=== PATIENT | female | born 1995 | race Asian ===

== ENCOUNTER 2021-09-01 19:37 | Emergency (ER) | payer BC ==
[~2021-09-01] VITALS: Ht 165.1 cm; Wt 52.2 kg
[2021-09-01] MEDS ORDERED: diphenhydrAMINE HCL 50 MG/ML VIAL ONE ×2 (20:27→21:51)
[2021-09-01] MEDS ORDERED: HALOPERIDOL LACTATE INJ 5 MG/ML VIAL ONE ×2 (20:27→21:51)
--- NOTE | 2021-09-01 20:27 | NUR ---
METAL RIVETING MACHINE OPERATOR AT PT'S BEDSIDE
[2021-09-01] MEDS ORDERED: MORPHINE SULFATE INJ 2 MG/ML DISP.SYRIN ONE ×2 (20:28→22:17)
[2021-09-01] MEDS ORDERED: MORPHINE SULFATE INJ 2 MG/ML DISP.SYRIN IV ONE ×2 (20:30→22:30)
[2021-09-01] MEDS ORDERED: IV NS 0.9% 1,000 ML BAG IV ONE (20:30)
[2021-09-01] MEDS: HALOPERIDOL LACTATE INJ 5 MG/ML VIAL IM ONE ×3 (20:36→21:55)
[2021-09-01 20:37] LABS: BASOPHILS # (AUTO) 0.1 K/uL (0.0-0.2); BASOPHILS % (AUTO) 0.5 % (0.0-2.0); EOSINOPHILS % (AUTO) 0.2 % (0.0-6.0); HEMATOCRIT 37 % (33-45); HEMOGLOBIN 11.3 g/dL (11.5-14.8); LYMPHOCYTES # (AUTO) 1.4 K/uL (0.8-4.8); LYMPHOCYTES % (AUTO) 9.7 % (20.0-44.0); MEAN CORPUSCULAR HGB CONC 31 g/dl (31.0-36.0); MEAN CORPUSCULAR VOLUME 80 fL (82-100); MONOCYTES # (AUTO) 0.6 K/uL (0.1-1.30); MONOCYTES % (AUTO) 3.9 % (2.0-12.0); NEUTROPHILS # (AUTO) 12.5 K/uL (1.8-8.9); NEUTROPHILS % (AUTO) 85.7 % (43.0-81.0); PLATELET COUNT (AUTO) 195 K/uL (150-450); RED BLOOD CELL COUNT(AUTO) 4.61 MIL/uL (4.0-5.2); WHITE BLOOD COUNT (AUTO) 14.6 K/uL (4.3-11.0)
[2021-09-01 20:49] LABS: CALCIUM, SERUM 8.9 mg/dL (8.5-10.1); CREATININE 0.7 mg/dL (0.6-1.3); POTASSIUM 3.8 mmol/L (3.5-5.1)
[2021-09-01] MEDS: diphenhydrAMINE HCL 50 MG/ML VIAL IV ONE ×2 (20:50→21:55)
--- NOTE | 2021-09-01 20:51 | NUR ---
haldol not given hr in 40S md made aware, held per md order.
[2021-09-01 20:55] LABS: ALBUMIN 3.8 g/dL (3.4-5.0); BILIRUBIN,DIRECT 0.2 mg/dL (0.0-0.2); BILIRUBIN,TOTAL 0.3 mg/dL (0.2-1.0); TOTAL PROTEIN, SERUM 6.9 g/dL (6.4-8.2)
--- NOTE | 2021-09-01 21:55 | NUR ---
per ok to give haldol.
[2021-09-01] MEDS ORDERED: LORAZEPAM INJ 2 MG/ML VIAL ONE (22:18)
[2021-09-01] MEDS ORDERED: LORAZEPAM INJ 2 MG/ML VIAL IV ONE (22:30)
[2021-09-02] MEDS ORDERED: IV NS 0.9% 1,000 ML IV ONE (01:00)
[2021-09-02] MEDS ORDERED: ONDA4TAB11 PO (01:59)
--- NOTE | 2021-09-02 02:06 | NUR ---
MOTHER WILL CAR UNLOADER PATIENT ETA 30 MINS
[2021-09-02 02:45] VITALS: BP 110/62
--- NOTE | 2021-09-02 02:46 | NUR ---
Patient discharged to home in stable condition. RX AND Written and verbal after care instructions given. Patient verbalizes understanding of instruction.IV removed. Catheter intact and site benign. Pressure and 4x4 applied to site. No bleeding noted.
== END 2021-09-02 02:50 | disposition home or self-care (01) ==
LOC: ER 19:41
DX: R10.84 Generalized abdominal pain (principal); R11.2 Nausea with vomiting, unspecified; R11.15 Cyclical vomiting syndrome unrelated to migraine; Z88.0 Allergy status to penicillin; Z60.2 Problems related to living alone
CPT/HCPCS: 36415; 74176; 80048; 80076; 83690; 84702; 85025; 93005; 96361 ×2; 96372; 96374; 96375; 96376; 99285; J1200; J1630; J2060; J2270 ×2

== ENCOUNTER 2021-10-08 16:12 | Inpatient (IN) | payer BC ==
[~2021-10-08] VITALS: Ht 170.2 cm; Wt 46.7 kg
[~2021-10-08 16:12] MED LIST: ONDA4TAB11 PO
--- NOTE | 2021-10-08 16:30 | NUR ---
AT [facility] FOR EVAL. Addendum: 10/08/21 at 1807 by TAMMYZARENO PT REFUSED ALBA CATH INSERTION.
--- NOTE | 2021-10-08 16:30 | NUR ---
BIBS FOR C/O LOWER ABDOMINAL PAIN, NAUSEA AND VOMITING SINCE AM S/P START OF HER PERIOD. RATES ABDOMINAL PAIN 08/05. WILL CONTINUE TO MONITOR THE PATIENT.
[2021-10-08] MEDS ORDERED: ONDANSETRON HCL/PF 4 MG/2 ML VIAL ONE ×2 (16:43→19:42)
[2021-10-08] MEDS ORDERED: LORAZEPAM INJ 2 MG/ML VIAL IV ONE (17:00)
[2021-10-08] MEDS ORDERED: ONDANSETRON HCL/PF - ER 4 MG/2 ML VIAL IV ONE ×2 (17:00→19:30)
[2021-10-08] MEDS ORDERED: IV NS 0.9% 1,000 ML IV ONE (17:00)
[2021-10-08] MEDS ORDERED: LORAZEPAM INJ 2 MG/ML VIAL ONE (17:13)
--- NOTE | 2021-10-08 17:16 | NUR ---
URINE SPECIMEN CUP GIVEN BUT UNABLE TO PROVIDE SPECIMEN THIS TIME.
[2021-10-08 17:36] LABS: BASOPHILS % (AUTO) 0.4 % (0.0-2.0); EOSINOPHILS % (AUTO) 0.3 % (0.0-6.0); HEMATOCRIT 36 % (33-45); HEMOGLOBIN 11.1 g/dL (11.5-14.8); LYMPHOCYTES # (AUTO) 1.4 K/uL (0.8-4.8); MEAN CORPUSCULAR HGB CONC 31 g/dl (31.0-36.0); MEAN CORPUSCULAR VOLUME 79 fL (82-100); MONOCYTES # (AUTO) 0.4 K/uL (0.1-1.30); MONOCYTES % (AUTO) 3.8 % (2.0-12.0); NEUTROPHILS # (AUTO) 9.7 K/uL (1.8-8.9); NEUTROPHILS % (AUTO) 83.5 % (43.0-81.0); PLATELET COUNT (AUTO) 171 K/uL (150-450); RED BLOOD CELL COUNT(AUTO) 4.53 MIL/uL (4.0-5.2); WHITE BLOOD COUNT (AUTO) 11.6 K/uL (4.3-11.0)
[2021-10-08 18:04] LABS: ALCOHOL, BLOOD < 3 mg/dL (0-0)
--- NOTE | 2021-10-08 18:07 | NUR ---
PT REFUSED ALBA CATH INSERTION.
[2021-10-08 18:13] LABS: CALCIUM, SERUM 8.7 mg/dL (8.5-10.1); CREATININE 0.9 mg/dL (0.6-1.3); POTASSIUM 4.1 mmol/L (3.5-5.1)
--- NOTE | 2021-10-08 18:17 | NUR ---
URINE SPECIMEN COLLECTED AND SENT TO LAB.
[2021-10-08 18:18] LABS: ALBUMIN 3.9 g/dL (3.4-5.0); BILIRUBIN,DIRECT 0.2 mg/dL (0.0-0.2); BILIRUBIN,TOTAL 0.7 mg/dL (0.2-1.0); TOTAL PROTEIN, SERUM 7.2 g/dL (6.4-8.2)
[2021-10-08] MEDS ORDERED: KETOROLAC TROMETHAMINE INJ 30 MG/ML VIAL IV ONE (18:30)
[2021-10-08] MEDS ORDERED: KETOROLAC TROMETHAMINE 15 MG/ML VIAL ONE (18:41)
[2021-10-08 18:51] LABS: BILIRUBIN,URINE NEGATIVE (NEGATIVE); COLOR,URINE YELLOW (YELLOW); LEUKOCYTE ESTERASE ,URINE NEGATIVE (NEGATIVE); NITRITE, URINE NEGATIVE (NEGATIVE); PH,URINE 6.5 (5.0-8.0); PROTEIN,URINE NEGATIVE (NEGATIVE); UGLUCOSE NEGATIVE (NEGATIVE); UROBILINOGEN,URINE 0.2 EU/dL (0.2)
[2021-10-08 18:54] LABS: BACTERIA,URINE RARE /HPF (None Seen); RBC,URINE 21-50 /HPF (0-2); WBC,URINE 0-2 /HPF (0-3)
[2021-10-08 18:55] LABS: SQUAMOUS EPITHELIAL CELL,UR 0-2 /HPF (None Seen)
[2021-10-08] MEDS ORDERED: ONDA4TAB5 PO (18:57)
[2021-10-08] MEDS ORDERED: diphenhydrAMINE HCL 50 MG/ML VIAL IV ONE (19:30)
[2021-10-08] MEDS ORDERED: IV NS 0.9% 1,000 ML BAG IV ONE (19:30)
--- NOTE | 2021-10-08 19:38 | NUR ---
COVID SWAB SENT TO LAB
[2021-10-08] MEDS ORDERED: diphenhydrAMINE HCL 50 MG/ML VIAL ONE (19:42)
[2021-10-08] MEDS ORDERED: ACETAMINOPHEN 325 MG TABLET PO PRN (20:00)
[2021-10-08] MEDS ORDERED: MAGNESIUM HYDROXIDE 30 ML UDC PO PRN (20:00)
[2021-10-08] MEDS ORDERED: Z GUARD REMEDY 2 OZ OINT TP PRN (20:00)
[2021-10-08] MEDS ORDERED: IV NS 0.9% 1,000 ML IV PRN (20:00)
[2021-10-08] MEDS ORDERED: MAG HYDROX/AL HYDROX/SIMETH 30 ML UDC PO PRN (20:00)
[2021-10-08] MEDS ORDERED: ONDANSETRON HCL/PF 4 MG/2 ML VIAL IVP PRN (20:00)
--- NOTE | 2021-10-08 20:34 | NUR ---
REPORT GIVEN TO HANNAH CERDA FOR OTILIA
--- NOTE | 2021-10-08 20:35 | NUR ---
RN notes Received report from HANNAH Moore ER nurse.
[2021-10-08 20:40] VITALS: BP 125/75
--- NOTE | 2021-10-08 20:40 | NUR ---
RN ms admission notes Received Pt from ER nurse. Pt is alert and orientedX4. Respiration is normal in 2 L NC. VS is stable. Afebrile. No SOB. No S/S of distress noted. IV site at L forearm # 22 is clean, intact and flushes well. Skin assessment is done and performed. Pt's skin is intact. Pt's belonging is checked By MIREILLE Wall. Safety precautions is maintained. Reoriented Pt to the room and call light. Bed at low position, brakes locked, side rails upX2, bed alarm is on and call light is within reach. Will continue to monitor.
[2021-10-08 21:00] VITALS: BP 125/75
--- NOTE | 2021-10-08 21:49 | NUR ---
RN notes Pt is feeling anxious and requesting ativan. Informed and notified LIQUID SUGAR FORTIFIER. LIQUID SUGAR FORTIFIER ordered ativan 1 mg/Q 6hr/ prn. Order carried out.
[2021-10-08] MEDS: METOCLOPRAMIDE HCL 10 MG/2 ML VIAL IV SCH (22:40)
[2021-10-08] MEDS: LORAZEPAM 1 MG TABLET PO PRN (22:40)
--- NOTE | 2021-10-09 01:47 | NUR ---
RN notes Pt is feeling anxious and nausea at the same time. Pt stated "only ativan help me with nausea not other meds!" Informed and notified PRIMARY SUBSTANCE ABUSE COUNSELOR. PRIMARY SUBSTANCE ABUSE COUNSELOR order ativan 1 mg/po/0ne time. Order carried out.
--- NOTE | 2021-10-09 01:50 | NUR ---
RN notes Called and spoke with [facility] to verify ativan 1mg/po/one time.
--- NOTE | 2021-10-09 01:54 | NUR ---
RN notes Pt is feeling nausea and anxious and requesting ativan. Administered ativan 1 mg/po/one time as ordered. safety precautions is maintained. Will continue to monitor.
[2021-10-09] MEDS ORDERED: LORAZEPAM 1 MG TABLET PO ONE (02:00)
[2021-10-09] MEDS: IV NS 0.9% 1,000 ML IV PRN ×2 (02:06→13:24)
[2021-10-09] MEDS: METOCLOPRAMIDE HCL 10 MG/2 ML VIAL IV SCH ×3 (05:00→21:49)
--- NOTE | 2021-10-09 05:00 | NUR ---
RN notes Pt refused reglan. Explained risks and benefits. pt keep refusing. Pt stated "only ativan works". Will continue to monitor.
[2021-10-09 06:49] LABS: BASOPHILS % (AUTO) 0.1 % (0.0-2.0); HEMATOCRIT 32 % (33-45); HEMOGLOBIN 10.3 g/dL (11.5-14.8); LYMPHOCYTES # (AUTO) 0.7 K/uL (0.8-4.8); LYMPHOCYTES % (AUTO) 10.1 % (20.0-44.0); MEAN CORPUSCULAR HGB CONC 33 g/dl (31.0-36.0); MEAN CORPUSCULAR VOLUME 77 fL (82-100); MONOCYTES # (AUTO) 0.3 K/uL (0.1-1.30); MONOCYTES % (AUTO) 3.6 % (2.0-12.0); NEUTROPHILS # (AUTO) 6.3 K/uL (1.8-8.9); NEUTROPHILS % (AUTO) 86.2 % (43.0-81.0); PLATELET COUNT (AUTO) 143 K/uL (150-450); RED BLOOD CELL COUNT(AUTO) 4.12 MIL/uL (4.0-5.2); WHITE BLOOD COUNT (AUTO) 7.3 K/uL (4.3-11.0)
--- NOTE | 2021-10-09 06:50 | NUR ---
RN ms closing notes Pt is resting in bed comfortably. Pt is alert and orienetdX4. Respiration is normal in 2 L NC. No SOB. No S/S of distress noted. Vs is stable. Afebrile. IV site at L forearm# 22 is clean, intact and infusing well NS@ 100ml/hr. Routine meds were given as ordered. Safety precautions is maintained. Bed at low position, brakes locked, side railsupX2 and call light is within reach. Will endorse to am nurse for OTILIA.
[2021-10-09 07:01] LABS: CALCIUM, SERUM 7.8 mg/dL (8.5-10.1); CREATININE 0.7 mg/dL (0.6-1.3); MAGNESIUM 1.9 mg/dL (1.8-2.4); PHOSPHORUS 4.1 mg/dL (2.5-4.9); POTASSIUM 4.5 mmol/L (3.5-5.1)
--- NOTE | 2021-10-09 07:55 | NUR ---
MS RN OPENING NOTES PATIENT IN BED, ASLEEP, AWAKEN EASILY. PATIENT ON OXYGEN THERAPY AT 2 LPM VIA NASAL CANNULA; BREATHING EVEN AND UNLABORED, NO SOB NOTED. NO S/S OF PAIN AT THIS TIME SUCH FACIAL GRIMACING, MOANING OR GUARDING NOTED. IV ACCESS AT LFA G #22 PRESENT AND INTACT RUNNING NS @ 100 ML/HR. SAFETY PRECAUTIONS IN PLACE; BED IN LOW POSITION AND LOCKED, RAILS UP X2, CALL LIGHT WITHIN REACH. WILL CONTINUE TO MONITOR PATIENT.
[2021-10-09 08:00] VITALS: BP 95/44
[2021-10-09] MEDS: ENSURE CLEAR 237 ML LIQUID (MIX BERRY) PO SCH ×2 (15:44→17:26)
[2021-10-09 16:00] VITALS: BP 92/44
--- NOTE | 2021-10-09 18:44 | NUR ---
MS RN CLOSING NOTES PATIENT REMAINS IN BED, ASLEEP, AWAKEN EASILY. PATIENT ON OXYGEN THERAPY AT 2 LPM VIA NASAL CANNULA; BREATHING EVEN AND UNLABORED, NO SOB NOTED. NO COMPLAINS OF PAIN JUST DIZZINESS AND NAUSEA. IV ACCESS AT LFA G #22 PRESENT AND INTACT; STOPPED DUE TO PATIENT BEING COLD, SHIVERING (NO FEVER) AND WANTING TO REST; WILL ENDORSE TO CMM PROGRAMMER NURSE TO RESTART SOON PATIENT IS COMFORTABLE. SAFETY PRECAUTIONS IN PLACE; BED IN LOW POSITION AND LOCKED, RAILS UP X2, CALL LIGHT WITHIN REACH. WILL ENDORSE TO CMM PROGRAMMER NURSE FOR OTILIA.
--- NOTE | 2021-10-09 19:00 | NUR ---
MS RN OPENING NOTE RECEIVED PT AWAKE IN BED. A/OX 4. PT IS STABLE ON 2L OXYGEN VIA NASAL CANNULA. NO SOB NOTED. NO S/S RESPIRATORY DISTRESS. PT IS AMBULATORY WITH ASSIST. PT HAS NO C/O PAIN AT THIS TIME. IV ACCESS IN LEFT FOREARM G #22. IV IS INTACT, PATENT, AND FLUSHING WELL. SAFETY MEASURES MAINTAINED . BED IN LOWEST LOCKED POSITION, HOB ELEVATED, SIDE RAILS UP X2. CALL LIGHT AND TABLE WITHIN REACH. WILL CONTINUE WITH PLAN OF CARE.
[2021-10-09 20:45] VITALS: BP 80/43
[2021-10-09] MEDS ORDERED: ZOLPIDEM TARTRATE 5 MG TABLET PO PRN (22:00)
--- NOTE | 2021-10-09 22:15 | NUR ---
PT C/O INABILITY TO SLEEP, PER PT REQUEST AMBIEN 5MG PO HS PRN FOR SLEEP ADMINISTERED AT THIS TIME PER ORDER. WILL CONTINUE TO MONITOR.
[2021-10-09] MEDS: LORAZEPAM 1 MG TABLET PO PRN (23:57)
--- NOTE | 2021-10-09 23:57 | NUR ---
PT C/O ANXIETY, PER PT REQUEST ATIVAN 1MG PO Q 6HR PRN ADMINISTERED AT THIS TIME PER ORDER. WILL CONTINUE TO MONITOR.
[2021-10-10] MEDS: METOCLOPRAMIDE HCL 10 MG/2 ML VIAL IV SCH ×2 (05:25→12:26)
--- NOTE | 2021-10-10 06:29 | NUR ---
MS RN CLOSING NOTE PT RESTING COMFORTABLY IN BED AT THIS TIME, AWAKE, A/O X4, STABLE ON 2L OXYGEN VIA NC. PT REMAINED STABLE THROUGHOUT SHIFT. ALL NEEDS, MEDICATIONS, AND CARE ADMINISTERED ANTICIPATED PER ORDER; SAFETY PRECAUTIONS IN PLACE AND MAINTAINED AT ALL TIMES. BED IN LOWEST LOCKED POSITION, HOB ELEVATED, SIDE RAILS UP X2. CALL LIGHT AND TABLE WITHIN REACH. WILL ENDORSE TO MORNING SHIFT NURSE FOR OTILIA.
[2021-10-10 06:56] LABS: BASOPHILS % (AUTO) 0.5 % (0.0-2.0); EOSINOPHILS % (AUTO) 1.3 % (0.0-6.0); HEMATOCRIT 32 % (33-45); HEMOGLOBIN 10.5 g/dL (11.5-14.8); LYMPHOCYTES # (AUTO) 2.5 K/uL (0.8-4.8); LYMPHOCYTES % (AUTO) 40.3 % (20.0-44.0); MEAN CORPUSCULAR HGB CONC 33 g/dl (31.0-36.0); MEAN CORPUSCULAR VOLUME 77 fL (82-100); MONOCYTES # (AUTO) 0.5 K/uL (0.1-1.30); MONOCYTES % (AUTO) 7.5 % (2.0-12.0); NEUTROPHILS # (AUTO) 3.1 K/uL (1.8-8.9); NEUTROPHILS % (AUTO) 50.4 % (43.0-81.0); PLATELET COUNT (AUTO) 126 K/uL (150-450); RED BLOOD CELL COUNT(AUTO) 4.18 MIL/uL (4.0-5.2); WHITE BLOOD COUNT (AUTO) 6.2 K/uL (4.3-11.0)
[2021-10-10 07:28] LABS: CALCIUM, SERUM 8.3 mg/dL (8.5-10.1); CREATININE 0.7 mg/dL (0.6-1.3)
--- NOTE | 2021-10-10 07:30 | NUR ---
MS RN OPENING NOTE RECEIVED PT AWAKE IN BED AND A/OX 4. PT IS STABLE ON 2L OXYGEN VIA NASAL CANNULA. NO SOB NOTED. NO S/S RESPIRATORY DISTRESS. WITH NO COMPLAINTS OF PAIN OR DISCOMFORT AT THIS TIME. WITH IV ACCESS AT LEFT FOREARM G #22 INTACT, PATENT, AND FLUSHING WELL. SAFETY MEASURES MAINTAINED . BED IN LOWEST LOCKED POSITION, HOB ELEVATED, SIDE RAILS UP X2. CALL LIGHT AND TABLE WITHIN REACH. WILL CONTINUE TO MONITOR.
[2021-10-10 08:00] VITALS: BP 101/60
[2021-10-10] MEDS: ENSURE CLEAR 237 ML LIQUID (MIX BERRY) PO SCH ×2 (08:37→11:37)
[2021-10-10] MEDS: LORAZEPAM 1 MG TABLET PO PRN (13:56)
[2021-10-10 16:00] VITALS: BP 100/55
--- NOTE | 2021-10-10 16:30 | NUR ---
MS HANNAH OPENING NOTES PATIENT WAS SEEN BY DR. MAYS AND ORDERED FOR DISCHARGE TO HOME. DISCHARGE INSTRUCTION AND EDUCATION PROVIDED TO PATIENT AND EXPLAINED MEDICATIONS AND PRESCRIPTIONS. PATIENT VERBALIZED UNDERSTANDING. DISCHARGE FORM AND BELONGINGS LIST FORM SIGNED BY PATIENT. ALL BELONGINGS ACCOUNTED FOR. NAME WRIST BAND AND IV LINE REMOVED. ACCOMPANIED PATIENT TO THE [facility] AMBUL[facility] AND WAS PICKED UP BY UBER OPTOMETRIC TECHNOLOGIST IN STABLE CONDITION. CHARGE NURSE AND MD ARE AWARE OF THE DISCHARGE. Addendum: 10/10/21 at 1636 by ANYI AHUJA RN ERROR
--- NOTE | 2021-10-10 16:30 | NUR ---
MS CORE INSPECTOR NOTES PATIENT WAS SEEN BY DR. MAYS AND ORDERED FOR DISCHARGE TO HOME. DISCHARGE INSTRUCTION AND EDUCATION PROVIDED TO PATIENT AND EXPLAINED MEDICATIONS AND PRESCRIPTIONS. PATIENT VERBALIZED UNDERSTANDING. DISCHARGE FORM AND BELONGINGS LIST FORM SIGNED BY PATIENT. ALL BELONGINGS ACCOUNTED FOR. NAME WRIST BAND AND IV LINE REMOVED. ACCOMPANIED PATIENT TO THE [facility] AMBULATORY AND WAS PICKED UP BY UBER PANTS CLOSER IN STABLE CONDITION. CHARGE NURSE AND MD ARE AWARE OF THE DISCHARGE.
== END 2021-10-10 16:45 | disposition home or self-care (01) | DRG 897 ==
LOC: ER 16:16 → MED 20:23
PROVIDERS: ADMIT Nurse Practitioner Acute Care; ATTEND Family Medicine
DX: F12.988 Cannabis use, unspecified with other cannabis-induced disorder (principal); F41.9 Anxiety disorder, unspecified; D72.829 Elevated white blood cell count, unspecified; R31.29 Other microscopic hematuria; N94.6 Dysmenorrhea, unspecified; Z88.0 Allergy status to penicillin; R00.1 Bradycardia, unspecified; N30.91 Cystitis, unspecified with hematuria
CPT/HCPCS: 36415; 80048-TC; 80076-TC; 81001; 83690-TC; 83735-TC; 84100-TC; 84702-TC; 84703-TC; 85025-TC; 87081-TC; C9803; G0378; G0480; J1200; J1885; J2060; J2405; J2765; J7030

== ENCOUNTER 2022-07-30 07:11 | Inpatient (IN) | payer BC ==
[~2022-07-30] VITALS: Ht 170.2 cm; Wt 45.8 kg
[2022-07-30 03:15] VITALS: BP 103/70
[~2022-07-30 07:11] MED LIST changes: -ONDA4TAB11 PO; +ONDA4TAB5 PO
--- NOTE | 2022-07-30 07:19 | NUR ---
[id number]. ABD PAIN, NAUSEA & VOMMTING. DX OF ENDOMETRIOSIS. PT A/OX4. CONNECTED PT TO POX AND MONTIOR.
[2022-07-30] MEDS ORDERED: ONDANSETRON HCL/PF 4 MG/2 ML VIAL ONE ×2 (07:26→10:09)
[2022-07-30] MEDS ORDERED: IV NS 0.9% 1,000 ML BAG IV ONE ×2 (07:30→09:00)
[2022-07-30] MEDS ORDERED: ONDANSETRON HCL/PF 4 MG/2 ML VIAL IVP ONE (07:30)
[2022-07-30] MEDS ORDERED: MORPHINE SULFATE INJ 4 MG/ML DISP.SYRIN ONE ×2 (07:43→10:09)
--- NOTE | 2022-07-30 07:47 | NUR ---
RAC #20G S/L BLOOD COLLECTED. PT NOT ABLE TO URINATE AT THIS TIME.
[2022-07-30 07:51] LABS: BASOPHILS # (AUTO) 0.1 K/uL (0.0-0.2); BASOPHILS % (AUTO) 0.6 % (0.0-2.0); EOSINOPHILS % (AUTO) 0.5 % (0.0-6.0); HEMATOCRIT 42 % (33-45); HEMOGLOBIN 13.4 g/dL (11.5-14.8); LYMPHOCYTES # (AUTO) 2.2 K/uL (0.8-4.8); LYMPHOCYTES % (AUTO) 17.6 % (20.0-44.0); MEAN CORPUSCULAR HGB CONC 32 g/dl (31.0-36.0); MEAN CORPUSCULAR VOLUME 87 fL (82-100); MONOCYTES # (AUTO) 0.5 K/uL (0.1-1.30); NEUTROPHILS # (AUTO) 9.8 K/uL (1.8-8.9); NEUTROPHILS % (AUTO) 77.3 % (43.0-81.0); PLATELET COUNT (AUTO) 210 K/uL (150-450); WHITE BLOOD COUNT (AUTO) 12.6 K/uL (4.3-11.0)
[2022-07-30 08:00] LABS: CALCIUM, SERUM 8.3 mg/dL (8.5-10.1); CREATININE 0.8 mg/dL (0.6-1.3); POTASSIUM 3.6 mmol/L (3.5-5.1)
[2022-07-30] MEDS ORDERED: MORPHINE SULFATE INJ 2 MG/ML DISP.SYRIN IV ONE ×3 (08:00→10:00)
[2022-07-30 08:07] LABS: BILIRUBIN,DIRECT 0.1 mg/dL (0.0-0.2); BILIRUBIN,TOTAL 0.5 mg/dL (0.2-1.0); TOTAL PROTEIN, SERUM 7.2 g/dL (6.4-8.2)
[2022-07-30] MEDS ORDERED: ONDANSETRON HCL/PF - ER 4 MG/2 ML VIAL IV ONE (10:00)
[2022-07-30 11:14] LABS: ALCOHOL, BLOOD < 3 mg/dL (0-0); CARBON DIOXIDE 27 mmol/L (21-32); CHLORIDE 108 mmol/L (98-107); CREATININE 0.5 mg/dL (0.6-1.3); GLUCOSE 151 mg/dL (74-106); POTASSIUM 3.9 mmol/L (3.5-5.1); SODIUM SERUM 142 mmol/L (136-145); UREA NITROGEN, BLOOD 8 mg/dL (7-18)
--- NOTE | 2022-07-30 11:48 | NUR ---
covid swab collected and sent to lab.
--- NOTE | 2022-07-30 12:04 | NUR ---
called nursing supervisor electronics inspection regarding pt bed
--- NOTE | 2022-07-30 14:26 | NUR ---
report given to nissa bowens. pt awaiting transfer to floor.
--- NOTE | 2022-07-30 15:15 | NUR ---
RN NOTE PATIENT WAS TRANSFERRED TO UNIT VIA GURNEY FROM ER, WITH NO SIGNS OF DISTRESS. V/S TAKEN STABLE AND RECORDED. PATIENT WAS ORIENTED TO ROOM SETUP AND EDUCATED PATIENT ON THE USE OF CALL LIGHT. SKIN ASSESSMENT DONE, PATIENT HAVE SOME SKIN PATCHES ON HER CHEST AND BACK, PATIENT REFUSED TO TAKE PICTURES AND SAID THAT IT WAS INVASION OF PRIVACY AND SHE DID NOT WANT PICTURES TAKEN, EXPLAINED TO PATIENT THE REASON PER HOSPITAL PROTOCOL OF TAKING PICTURES. A/O X4. PAIN 3/10 LEVEL, REFUSED PAIN MEDICATION AT THE MOMENT. ON ROOM AIR, NO DISTRESS OR SHORTNESS OF BREATH NOTED. IV ACCESS RAC #20G INTACT, PATENT AND FLUSHING WELL. FALL AND SAFETY MEASURES IN PLACE, BED ALARM ON, BED IN LOW AND LOCK POSITION, CALL LIGHT AND TABLE WITH EASY REACH, SIDE RAILS UP X2. WILL CONTINUE TO MONITOR.
[2022-07-30] MEDS ORDERED: MAGNESIUM HYDROXIDE 30 ML UDC PO PRN (16:00)
[2022-07-30] MEDS ORDERED: Z GUARD REMEDY 4 OZ OINT TP PRN (16:00)
[2022-07-30] MEDS ORDERED: ACETAMINOPHEN 325 MG TABLET PO PRN (16:00)
[2022-07-30] MEDS ORDERED: ONDANSETRON HCL/PF 4 MG/2 ML VIAL IVP PRN (16:00)
[2022-07-30] MEDS ORDERED: MORPHINE SULFATE INJ 2 MG/ML DISP.SYRIN IV PRN (16:00)
[2022-07-30] MEDS ORDERED: MAG HYDROX/AL HYDROX/SIMETH 30 ML UDC PO PRN (16:00)
[2022-07-30] MEDS: IV NS 0.9% 1,000 ML IV SCH (16:12)
[2022-07-30 17:11] VITALS: BP 130/54
--- NOTE | 2022-07-30 18:49 | NUR ---
RN CLOSING NOTE A/O X4. PAIN 7/10 LEVEL, REFUSED PAIN MEDICATION AT THE MOMENT. PATIENT ASKING FOR ATIVAN, DOCTOR MINAL INFORMED, WAITING FOR RESPONSE. ON ROOM AIR, NO DISTRESS OR SHORTNESS OF BREATH NOTED. IV ACCESS RAC #20G INTACT, PATENT AND FLUSHING WELL, IV NS 125ML/HR. FALL AND SAFETY MEASURES IN PLACE, BED ALARM ON, BED IN LOW AND LOCK POSITION, CALL LIGHT AND TABLE WITH EASY REACH, SIDE RAILS UP X2. WILL ENDORSE TO MACHINE BASTER.
--- NOTE | 2022-07-30 19:35 | NUR ---
MS RN OPENING NOTE RECEIVED PATIENT IN BED; AWAKE, ALERT AND ORIENTED X 4. BREATHING EVEN AND NONLABORED. ON ROOM AIR, TOLERATING WELL. NOT IN ANY FORM OF RESPIRATORY DISTRESS. WITH IV ACCESS ON RIGHT ANTECUBITAL 20g: PATENT AND INTACT INFUSING WITH NS 1L REGULATED @ 125 ML/HR; FLUSHES WELL. NO INFILTRATION NOTED. ABLE TO MAKE NEEDS KNOWN. SAFETY MEASURES IMPLEMENTED: CALL LIGHT AND TABLE WITHIN REACH, SIDE RAILS UP X 2, BED IN LOWEST LOCKED POSITION. WILL CONTINUE PLAN OF CARE.
[2022-07-30] MEDS: MORPHINE SULFATE INJ 2 MG/ML DISP.SYRIN IV PRN (19:59)
--- NOTE | 2022-07-30 19:59 | NUR ---
RN NOTE PATIENT C/O ABDOMINAL PAIN 06/05; PRN MORPHINE 2MG IV GIVEN ORDERED; WILL CONTINUE TO MONITOR AND REASSESS PT.
[2022-07-30 20:00] VITALS: BP 106/62
[2022-07-31] MEDS: IV NS 0.9% 1,000 ML IV SCH ×3 (00:21→16:37)
--- NOTE | 2022-07-31 06:45 | NUR ---
MS RN CLOSING NOTE PATIENT IN BED; AWAKE, A/OX 4. RESPIRATION EVEN AND NONLABORED. STABLE ON ROOM AIR. IN NO APPARENT DISTRESS. WITH IV ACCESS ON RIGHT ANTECUBITAL 20g: PATENT AND INTACT INFUSING WITH NS 1L REGULATED @ 125 ML/HR; FLUSHES WELL. ALL NEEDS MET. SAFETY MEASURES MAINTAINED: CALL LIGHT AND TABLE WITHIN REACH, SIDE RAILS UP X 2, BED IN LOWEST LOCKED POSITION. ENDORSED TO JOSEPH YOUNG FOR OTILIA.
[2022-07-31 06:48] LABS: BASOPHILS % (AUTO) 0.3 % (0.0-2.0); HEMATOCRIT 33 % (33-45); HEMOGLOBIN 10.8 g/dL (11.5-14.8); LYMPHOCYTES # (AUTO) 2.2 K/uL (0.8-4.8); LYMPHOCYTES % (AUTO) 29.1 % (20.0-44.0); MEAN CORPUSCULAR HGB CONC 33 g/dl (31.0-36.0); MEAN CORPUSCULAR VOLUME 86 fL (82-100); MONOCYTES # (AUTO) 0.5 K/uL (0.1-1.30); MONOCYTES % (AUTO) 7.2 % (2.0-12.0); NEUTROPHILS # (AUTO) 4.8 K/uL (1.8-8.9); NEUTROPHILS % (AUTO) 62.4 % (43.0-81.0); PLATELET COUNT (AUTO) 138 K/uL (150-450); RED BLOOD CELL COUNT(AUTO) 3.83 MIL/uL (4.0-5.2); WHITE BLOOD COUNT (AUTO) 7.7 K/uL (4.3-11.0)
[2022-07-31 07:27] LABS: CALCIUM, SERUM 7.8 mg/dL (8.5-10.1); CREATININE 0.6 mg/dL (0.6-1.3); MAGNESIUM 1.8 mg/dL (1.8-2.4); PHOSPHORUS 3.1 mg/dL (2.5-4.9)
--- NOTE | 2022-07-31 07:30 | NUR ---
RN NOTES RECEIVED PATIENT IN AWAKE, A/O X4, VERBALLY RESPONSIVE. NO SIGNS OF ACUTE DISTRESS NOTED. WITH C/O ABDOMINAL PAIN. WILL MEDICATE ORDERED. ON ROOM AIR, NO SOB NOTED, BREATHING EVEN AND UNLABORED. NOTED WITH IV ACCESS ON RIGHT AC #20G, INTACT AND PATENT WITH NS @ 125 ML/HR RUNNING. SAFETY MEASURE IN PLACE. BED IN LOWEST AND LOCKED POSITION. SIDE RAILS UP X2, CALL LIGHT AND TABLE PLACED WITHIN EASY REACH. WILL CONTINUE TO MONITOR PATIENT.
[2022-07-31] MEDS: MORPHINE SULFATE INJ 2 MG/ML DISP.SYRIN IV PRN ×3 (07:46→21:00)
[2022-07-31] MEDS: PANTOPRAZOLE 40 MG VIAL IV SCH (08:41)
[2022-07-31] MEDS: LORAZEPAM INJ 2 MG/ML VIAL IV PRN (09:28)
--- NOTE | 2022-07-31 09:28 | NUR ---
RN NOTE LORAZEPAM 0.5 MG IVP GIVEN FOR ANXIETY.
[2022-07-31 16:00] VITALS: BP 96/58
[2022-07-31 18:45] LABS: BILIRUBIN,URINE NEGATIVE (NEGATIVE); COLOR,URINE YELLOW (YELLOW); LEUKOCYTE ESTERASE ,URINE TRACE (NEGATIVE); NITRITE, URINE NEGATIVE (NEGATIVE); PH,URINE 5.5 (5.0-8.0); PROTEIN,URINE TRACE mg/dl (NEGATIVE); UGLUCOSE NEGATIVE (NEGATIVE); UROBILINOGEN,URINE 0.2 EU/dL (0.2)
--- NOTE | 2022-07-31 18:50 | NUR ---
RN CLOSING NOTES PATIENT IN BED AWAKE, A/O X4, VERBALLY RESPONSIVE. NO SIGNS OF ACUTE DISTRESS NOTED. STILL WITH C/O ABDOMINAL PAIN. MORPHINE GIVEN ORDERED. ON O2 2 2LPM VIA N/C, NO SOB NOTED, BREATHING EVEN AND UNLABORED. IV ACCESS ON RIGHT AC #20G, INTACT AND PATENT WITH NS @ 125 ML/HR RUNNING. SAFETY MEASURE IN PLACE. BED IN LOWEST AND LOCKED POSITION. SIDE RAILS UP X2, CALL LIGHT AND TABLE PLACED WITHIN EASY REACH. WILL ENDORSE TO NEXT SHIFT FOR CONTINUITY OF CARE.
[2022-07-31 18:56] LABS: BACTERIA,URINE 1+ /HPF (None Seen); RBC,URINE TOO NUMEROUS TO COUN /HPF (0-2)
[2022-07-31 18:57] LABS: FINE GRANULAR CASTS,URINE Few /LPF (None Seen); MUCUS,URINE Few /LPF (None Seen)
--- NOTE | 2022-07-31 19:40 | NUR ---
MS RN OPENING NOTE RECEIVED PATIENT SLEEPING IN BED; AWAKE, ALERT AND ORIENTED X 4. ABLE TO VERBALIZE NEEDS. BREATHING EVEN AND NONLABORED. PT ON 2L NC, TOLERATING WELL. NOT IN ANY FORM OF RESPIRATORY DISTRESS. WITH IV ACCESS ON RIGHT ANTECUBITAL 20 G, IV PATENT AND INTACT INFUSING NS @ 125 ML/HR; FLUSHES WELL. NO INFILTRATION NOTED. SAFETY MEASURES IMPLEMENTED: CALL LIGHT AND TABLE WITHIN REACH, SIDE RAILS UP X 2, BED IN LOWEST LOCKED POSITION. WILL CONTINUE TO MONITOR PT.
[2022-07-31 20:00] VITALS: BP 107/73
[2022-08-01] MEDS: MORPHINE SULFATE INJ 2 MG/ML DISP.SYRIN IV PRN ×3 (04:02→18:58)
--- NOTE | 2022-08-01 07:15 | NUR ---
MS RN CLOSING NOTE PATIENT IN BED,RESTING. PT A/OX 4, ABLE TO VERBALIZE NEEDS. RESPIRATION EVEN AND NONLABORED. STABLE ON ROOM AIR. IN NO APPARENT DISTRESS. NO C/O PAIN AT THIS TIME. IV ACCESS TO RIGHT ANTECUBITAL 20G: PATENT AND INTACT INFUSING WITH NS @ 125 ML/HR; FLUSHES WELL. SAFETY MEASURES MAINTAINED: CALL LIGHT AND TABLE WITHIN REACH, SIDE RAILS UP X 2, BED IN LOWEST LOCKED POSITION. ENDORSED TO INCOMING RN FOR OTILIA.
--- NOTE | 2022-08-01 07:30 | NUR ---
MS RN OPENING NOTES RECEIVED PATIENT IN AWAKE, A/O X4, VERBALLY RESPONSIVE. NO SOB OR DISTRESS NOTED AT THIS TIME . NO C/O OF PAIN AND DISCOMFORT . ROOM AIR TOLERATING WELL . NOTED WITH IV ACCESS ON RIGHT AC #20G, INTACT AND PATENT WITH NS @ 125 ML/HR RUNNING. SAFETY MEASURE IN PLACE. BED IN LOWEST AND LOCKED POSITION. SIDE RAILS UP X2, CALL LIGHT AND TABLE PLACED WITHIN EASY REACH. WILL CONTINUE TO MONITOR PATIENT.
[2022-08-01 08:00] VITALS: BP 107/75
[2022-08-01] MEDS: PANTOPRAZOLE 40 MG VIAL IV SCH (08:24)
[2022-08-01] MEDS: IV NS 0.9% 1,000 ML IV SCH ×4 (08:25→18:58)
--- NOTE | 2022-08-01 08:25 | NUR ---
RN NOTES PATIENT C/O OF PAIN AND DISCOMFORT 06/05 AND MORPHINE GIVEN ORDERED
--- NOTE | 2022-08-01 09:00 | NUR ---
MS RN NOTE RECEIVED PATIENT AWAKE IN BED. VITAL SIGNS STABLE. SpO2= 99% ON ROOM AIR. NO S/S OF DYSPNEA OR SOB. A/O x 4. ABLE TO MAKE NEEDS KNOWN. PATIENT IV ACCESS REMOVED PER PATIENT REQUEST. COVERED WITH DRY DRESSING, DRY AND INTACT. COMPLAINED OF ABOMINAL PAIN, WAS GIVEN BY PREVIOUS NURSE MORPHINE. PROVIDED WITH CALM AND QUIET ENVIRONMENT. DR. FONTAINE AWARE OF LATEST CONDITON. WILL TRY TO ADVANCE DIET AND CHECK FOR FOOD TOLERANCE. WILL CONTINUE TO MONITOR PATIENT.
[2022-08-01 09:01] LABS: BASOPHILS % (AUTO) 0.4 % (0.0-2.0); EOSINOPHILS % (AUTO) 1.1 % (0.0-6.0); HEMATOCRIT 35 % (33-45); HEMOGLOBIN 11.4 g/dL (11.5-14.8); LYMPHOCYTES # (AUTO) 1.6 K/uL (0.8-4.8); LYMPHOCYTES % (AUTO) 22.7 % (20.0-44.0); MEAN CORPUSCULAR HGB CONC 32 g/dl (31.0-36.0); MEAN CORPUSCULAR VOLUME 86 fL (82-100); MONOCYTES # (AUTO) 0.4 K/uL (0.1-1.30); MONOCYTES % (AUTO) 5.9 % (2.0-12.0); NEUTROPHILS # (AUTO) 4.9 K/uL (1.8-8.9); NEUTROPHILS % (AUTO) 69.9 % (43.0-81.0); PLATELET COUNT (AUTO) 138 K/uL (150-450); RED BLOOD CELL COUNT(AUTO) 4.08 MIL/uL (4.0-5.2)
[2022-08-01] MEDS ORDERED: HYDR-4303 PO (09:01)
[2022-08-01] MEDS ORDERED: ONDA4TAB5 PO (09:01)
[2022-08-01 09:12] LABS: CALCIUM, SERUM 7.9 mg/dL (8.5-10.1); CREATININE 0.6 mg/dL (0.6-1.3); POTASSIUM 3.5 mmol/L (3.5-5.1)
[2022-08-01] MEDS ORDERED: MORPHINE SULFATE INJ 2 MG/ML DISP.SYRIN IV ONE (11:00)
--- NOTE | 2022-08-01 12:31 | NUR ---
RN NOTE- PTS PERIPHERAL IV COLLAPSED AGAIN. ASSIGNED RN INSERTED SEVERAL. SAME RESULT EACH TIME. DR FONTAINE INFORMED AND STATED NO IV. OFFER TRAY. ENCOURAGE INTAKE AND SEE HOW SHE DOES TODAY. COMPLYING
[2022-08-01] MEDS: LORAZEPAM INJ 2 MG/ML VIAL IV PRN ×2 (13:25→22:05)
[2022-08-01 16:00] VITALS: BP 107/75
--- NOTE | 2022-08-01 19:11 | NUR ---
MS RN CLOSING NOTE PATIENT AWAKE IN BED. VITAL SIGNS STABLE. PATIENT A/O x 4. ABLE TO MAKE NEEDS KNOWN. PATIENT IV ACCESS REMOVED PER PATIENT REQUEST. COVERED WITH DRY DRESSING, DRY AND INTACT. PROVIDED WITH CALM AND QUIET ENVIRONMENT. PATIENT STILL COMPLAINS OF ABDOMINAL PAIN AND CLAIMS TO NOT TOLERATE FOOD AND FLUIDS DESPITE ENCOURAGEMENT. WILL ENDORSE PATIENT TO NEXT SHIFT FOR CONTINUITY OF CARE.
[2022-08-01 20:00] VITALS: BP 105/72
--- NOTE | 2022-08-01 20:40 | NUR ---
MS RN OPENING NOTE RECEIVED PATIENT SLEEPING IN BED; ALERT AND ORIENTED X 4. ABLE TO VERBALIZE NEEDS. BREATHING EVEN AND NONLABORED. PT ON 2L NC, TOLERATING WELL. NO RESPIRATORY DISTRESS NOTED. WITH IV ACCESS TO RIGHT HAND 20 G, IV PATENT AND INTACT INFUSING NS @ 125 ML/HR; FLUSHES WELL. NO INFILTRATION NOTED. SAFETY MEASURES IMPLEMENTED: CALL LIGHT AND TABLE WITHIN REACH, SIDE RAILS UP X 2, BED IN LOWEST LOCKED POSITION. WILL CONTINUE TO MONITOR PT.
[2022-08-02] MEDS: MORPHINE SULFATE INJ 2 MG/ML DISP.SYRIN IV PRN ×5 (00:36→16:32)
[2022-08-02] MEDS: IV NS 0.9% 1,000 ML IV SCH ×2 (03:20→12:01)
--- NOTE | 2022-08-02 07:00 | NUR ---
RN OPENING NOTE PATIENT LAYING IN BED, A/O X 4, ABLE TO MAKE NEEDS KNOWN. ON 2 LPM O2 VIA NASAL CANNULA FOR COMFORT, TOLERATING WELL WITH NO S/S RESPIRATORY DISTRESS. R AC # 20 G IV PATENT AND INFUSING NS @ 125 ML/HR. SAFETY MEASURES IN PLACE: BED IN LOWEST LOCKED POSITION, SIDE RAILS UP X 2, CALL LIGHT WITHIN REACH. WILL CONTINUE TO MONITOR.
--- NOTE | 2022-08-02 07:25 | NUR ---
MS RN CLOSING NOTE PATIENT LEFT IN BED, RESTING. PT A/OX 4, ABLE TO VERBALIZE NEEDS. RESPIRATION EVEN AND NONLABORED. STABLE ON ROOM AIR. IN NO APPARENT DISTRESS. NO C/O PAIN AT THIS TIME. IV ACCESS TO RIGHT ANTECUBITAL 20G: PATENT AND INTACT INFUSING WITH NS @ 125 ML/HR. SAFETY MEASURES MAINTAINED: CALL LIGHT AND TABLE WITHIN REACH, SIDE RAILS UP X 2, BED IN LOWEST LOCKED POSITION. ENDORSED TO AM SHIFT RN FOR OTILIA.
[2022-08-02] MEDS ORDERED: PANTOPRAZOLE 40 MG TABLET.DR PO SCH (07:30)
[2022-08-02] MEDS: LORAZEPAM INJ 2 MG/ML VIAL IV PRN (08:48)
--- NOTE | 2022-08-02 08:48 | NUR ---
MS RN NOTES PATIENT COMPLAINT OF ANXIETY AND NAUSEA AND REQUESTING ANXIETY/ NAUSEA MEDICATION. PRN ATIVAN 0.5 MG IVP ADMINISTERED ORDERED. PRN ZOFRAN 4 MG ADMINISTERED ORDERED. WILL CONTINUE TO MONITOR FOR S/S ANXIETY. PATIENT ALSO STATED SHE IS CURRENTLY NOT ABLE TO TOLERATE REGULAR DIET AND REQUESTING TO BE SWITCHED BACK TO CLEAR LIQUID DIET. ORDER PLACED FOR CLEAR LIQUID DIET.
[2022-08-02] MEDS ORDERED: LORAZEPAM 1 MG TABLET PO PRN (09:30)
--- NOTE | 2022-08-02 11:00 | NUR ---
MS RN NOTE PATIENT PLACED ON ROOM AIR, TOLERATING WELL
--- NOTE | 2022-08-02 19:00 | NUR ---
MS RN CLOSING NOTES PATIENT STANDING IN ROOM, A/O X 4, ABLE TO MAKE NEEDS KNOWN, TOLERATING WELL ON ROOM AIR WITH NO S/S RESPIRATORY DISTRESS. NO COMPLAINTS OF PAIN OR DISCOMFORT AT THIS TIME. PATIENT DRESSED AND READY TO LEAVE FACILITY, PENDING UBER PICKUP. IV LINE AND ID BAND REMOVED. ALL NEEDS MET. WILL ENDORSE TO PIPE ORGAN INSTALLER FOR OTILIA.
== END 2022-08-02 19:00 | disposition home or self-care (01) | DRG 394 ==
LOC: ER 07:13 → MED 14:09
PROVIDERS: ADMIT Internal Medicine; ATTEND Internal Medicine
DX: R11.15 Cyclical vomiting syndrome unrelated to migraine (principal); E87.20 Acidosis, unspecified; N80.9 Endometriosis, unspecified; Z20.822 Contact with and (suspected) exposure to COVID-19; N94.6 Dysmenorrhea, unspecified; E86.0 Dehydration; D64.9 Anemia, unspecified; Z88.0 Allergy status to penicillin
CPT/HCPCS: 36415; 80048-TC; 80076-TC; 81001; 83690-TC; 83735-TC; 84100-TC; 84703-TC; 85025-TC; 87081-TC; C9113; C9803; G0378; G0480; J2060; J2270; J2405; J7030

== ENCOUNTER 2022-11-28 21:59 | Inpatient (IN) | payer BC, OTHER ==
[~2022-11-28] VITALS: Ht 170.2 cm; Wt 46.3 kg
[~2022-11-28 21:59] MED LIST changes: +HYDR-4303 PO
--- NOTE | 2022-11-28 22:10 | NUR ---
TO ER BED 11. [id number]. ABD PAIN, NAUSEA AND VOMITING X 3 HRS. PT IS ALERT AND ORIENTED. RR EVEN AND NONLABORED. CONNECTED TO POX AND HEART MONITOR. WARM BLANKETS AND EMESIS BAG PROVIDED. AWAITING MD OCONNOR
[2022-11-28] MEDS ORDERED: METOCLOPRAMIDE HCL 10 MG/2 ML VIAL ONE (22:14)
--- NOTE | 2022-11-28 22:27 | NUR ---
ER PROFESSOR OF GERMAN AT BEDSIDE
[2022-11-28] MEDS ORDERED: MORPHINE SULFATE INJ 4 MG/ML DISP.SYRIN ONE ×2 (22:28→23:31)
[2022-11-28] MEDS ORDERED: METOCLOPRAMIDE HCL 10 MG/2 ML VIAL IV ONE (22:30)
[2022-11-28] MEDS ORDERED: IV NS 0.9% 1,000 ML BAG IV ONE (22:30)
[2022-11-28] MEDS ORDERED: MORPHINE SULFATE INJ 2 MG/ML DISP.SYRIN IV ONE ×2 (22:30→23:30)
--- NOTE | 2022-11-28 22:48 | NUR ---
COVID SWAB DONE AND SENT TO LAB
--- NOTE | 2022-11-28 22:48 | NUR ---
PATIENT REFUSED CT
--- NOTE | 2022-11-28 22:48 | NUR ---
PREG WAIVER SIGNED
[2022-11-28] MEDS ORDERED: ONDANSETRON HCL/PF 4 MG/2 ML VIAL ONE ×2 (22:55→23:31)
[2022-11-28] MEDS ORDERED: ONDANSETRON HCL/PF - ER 4 MG/2 ML VIAL IV ONE (23:00)
[2022-11-28 23:16] LABS: ALBUMIN 3.8 g/dL (3.4-5.0); BILIRUBIN,DIRECT 0.2 mg/dL (0.0-0.2); BILIRUBIN,TOTAL 0.5 mg/dL (0.2-1.0); CALCIUM, SERUM 9.3 mg/dL (8.5-10.1); CREATININE 0.9 mg/dL (0.6-1.3); POTASSIUM 3.1 mmol/L (3.5-5.1); TOTAL PROTEIN, SERUM 6.8 g/dL (6.4-8.2)
[2022-11-28] MEDS ORDERED: POTASSIUM CHLORIDE 20 MEQ TAB.PRT.SR PO ONE ×2 (23:30→23:31)
[2022-11-28] MEDS ORDERED: ONDANSETRON HCL/PF 4 MG/2 ML VIAL IVP ONE (23:30)
[2022-11-28 23:40] LABS: LYMPHOCYTES # (AUTO) 0.9 K/uL (0.8-4.8); NEUTROPHILS # (AUTO) 6.3 K/uL (1.8-8.9); WHITE BLOOD COUNT (AUTO) 8.3 K/uL (4.3-11.0)
--- NOTE | 2022-11-28 23:44 | NUR ---
IV LINE ESTABLISHED, LFA20G
[2022-11-28 23:46] LABS: BASOPHILS # (AUTO) 0.7 K/uL (0.0-0.2); EOSINOPHILS % (AUTO) 1.5 % (0.0-6.0); HEMATOCRIT 40 % (33-45); HEMOGLOBIN 12.7 g/dL (11.5-14.8); LYMPHOCYTES % (AUTO) 10.7 % (20.0-44.0); MEAN CORPUSCULAR HGB CONC 32 g/dl (31.0-36.0); MEAN CORPUSCULAR VOLUME 86 fL (82-100); MONOCYTES # (AUTO) 0.3 K/uL (0.1-1.30); MONOCYTES % (AUTO) 3.2 % (2.0-12.0); NEUTROPHILS % (AUTO) 75.8 % (43.0-81.0); PLATELET COUNT (AUTO) 173 K/uL (150-450); RED BLOOD CELL COUNT(AUTO) 4.72 MIL/uL (4.0-5.2)
[2022-11-28 23:50] LABS: BASOPHILS % (AUTO) 8.8 % (0.0-2.0)
[2022-11-28 23:55] LABS: BILIRUBIN,URINE NEGATIVE (NEGATIVE); COLOR,URINE OTHER (YELLOW); LEUKOCYTE ESTERASE ,URINE NEGATIVE (NEGATIVE); NITRITE, URINE NEGATIVE (NEGATIVE); PROTEIN,URINE NEGATIVE (NEGATIVE); UGLUCOSE NEGATIVE (NEGATIVE); UROBILINOGEN,URINE 0.2 EU/dL (0.2)
[2022-11-29 00:13] LABS: BACTERIA,URINE Rare /HPF (None Seen); SQUAMOUS EPITHELIAL CELL,UR Few /HPF (None Seen)
[2022-11-29 00:14] LABS: RBC,URINE 0-2 /HPF (0-2); WBC,URINE 0-2 /HPF (0-3)
[2022-11-29] MEDS ORDERED: MAG HYDROX/AL HYDROX/SIMETH 30 ML UDC PO PRN (00:30)
[2022-11-29] MEDS ORDERED: Z GUARD REMEDY 4 OZ OINT TP PRN (00:30)
[2022-11-29] MEDS ORDERED: ZOLPIDEM TARTRATE 5 MG TABLET PO PRN (00:30)
[2022-11-29] MEDS ORDERED: ONDANSETRON HCL/PF 4 MG/2 ML VIAL IVP PRN (00:30)
[2022-11-29] MEDS ORDERED: MAGNESIUM HYDROXIDE 30 ML UDC PO PRN (00:30)
[2022-11-29] MEDS ORDERED: ACETAMINOPHEN 325 MG TABLET PO PRN (00:30)
--- NOTE | 2022-11-29 01:23 | NUR ---
320-1 CALL AT 0130
--- NOTE | 2022-11-29 01:51 | NUR ---
REPORT GIVEN TO 3W RN
--- NOTE | 2022-11-29 02:30 | NUR ---
ADMISSION NOTE RECEIVED PT FROM ER. PT A/O X 4., IN ROOM AIR. NO SOB / NO SIGNS OF DISTRESS NOTED. IV SITE CLEAN AND PATENT AT LFA #20G/, CLEAN, INTACT & FLUSHES WELL. PT REFUSE SKIN ASSESSMENT. PT BELONGING CHECK BY DONTE KENDRICK. REORIENT PT TO THE ROOM THE USE OF CALL LIGHT. SAFETY PRECAUTION IS MAINTAINED, BED AT LOWEST AND LOCKED POSITION, SIDE RAILS UP X 2, HOB ELEVATED, BED ALARM IS ON, CALL LIGHT AND BEDSIDE TABLE WITHIN REACH. WILL CONTINUE TO MONITOR.
[2022-11-29] MEDS: IV NS 0.9% 1,000 ML IV PRN (02:33)
[2022-11-29 02:40] VITALS: BP 89/54
[2022-11-29 03:30] LABS: BASOPHILS % (MANUAL) 0 % (0.0-2.0); EOSINOPHILS % (MANUAL) 3 % (0-4); LYMPHOCYTES % (MANUAL) 13 % (16-48); MONOCYTES % (MANUAL) 4 % (0-11.0); NEUTROPHILS % (MANUAL) 80 (42-76)
[2022-11-29 03:48] VITALS: BP 105/57
[2022-11-29] MEDS: MORPHINE SULFATE INJ 2 MG/ML DISP.SYRIN IV PRN ×2 (03:52→08:50)
--- NOTE | 2022-11-29 03:53 | NUR ---
RN notes Pt is complaining of abdominal pain 9/10 on pain scale and Pt requesting pain meds. Administered morphine 1 mg/iv/prn as ordered for pain. vs is stable. safety precautions is maintained. will continue to monitor.
[2022-11-29] MEDS: METOCLOPRAMIDE HCL 10 MG/2 ML VIAL IV SCH ×3 (05:57→21:16)
--- NOTE | 2022-11-29 06:40 | NUR ---
CLOSING NOTES PT ASLEEP AND RESTING COMFORTABLY IN BED IN ROOM AIR. RESPONSIVE AND FOLLOWS VERBAL COMMAND. A/O X 4. NO SOB NOTED. IV SITE LFA #20g, RUNNING AT NS 75 MLS/HR CLEAN AND PATENT. SAFETY MEASURES MAINTAINED WITH BED AT ITS LOWEST AND LOCKED POSITION. BED ALARM ON. CALL LIGHT AND TABLE WITHIN REACH. SIDE RAILS UP X 2 WILL ENDORSE TO THE NEXT SHIFT FOR CONTINUITY OF CARE.
--- NOTE | 2022-11-29 07:25 | NUR ---
RN OPENING NOTE RECEIVED PATIENT IN BED, AWAKE, A/O X4, VERBALLY RESPONSIVE AND ABLE TO MAKE NEEDS KNOWN. NO SIGNS OF ACUTE DISTRESS NOTED. STABLE ON ROOM AIR, BREATHING EVEN AND UNLABORED. NO C/O PAIN AT THIS TIME. DENIES ANY NAUSEA. NOTED WITH IV ACCESS ON LEFT FORE ARM #20G, INTACT AND PATENT WITH NS @ 75 ML/HR RUNNING. SAFETY MEASURE IN PLACE, BED IN LOW AND LOCKED POSITION, SIDE RAILS UP X2, CALLLIGHT PLACED WITHIN EASY REACH. WILL CONTINUE TO MONITOR PATIENT.
[2022-11-29 08:35] VITALS: BP 112/72
[2022-11-29] MEDS: PANTOPRAZOLE 40 MG VIAL IV SCH (08:43)
[2022-11-29] MEDS: ENSURE CLEAR 237 ML LIQUID (MIX BERRY) PO SCH ×3 (09:00→17:02)
[2022-11-29] MEDS: GABAPENTIN 100 MG CAPSULE PO SCH ×3 (09:13→16:53)
[2022-11-29 09:34] LABS: BILIRUBIN,TOTAL 0.5 mg/dL (0.2-1.0); CALCIUM, SERUM 8.6 mg/dL (8.5-10.1); CREATININE 0.7 mg/dL (0.6-1.3); MAGNESIUM 1.8 mg/dL (1.8-2.4); PHOSPHORUS 3.5 mg/dL (2.5-4.9); POTASSIUM 3.6 mmol/L (3.5-5.1); TOTAL PROTEIN, SERUM 6.8 g/dL (6.4-8.2)
[2022-11-29 09:46] LABS: ALBUMIN 3.8 g/dL (3.4-5.0)
[2022-11-29] MEDS: LORAZEPAM INJ 2 MG/ML VIAL IV PRN ×2 (09:48→17:49)
[2022-11-29 16:15] VITALS: BP 128/67
--- NOTE | 2022-11-29 18:50 | NUR ---
RN CLOSING NOTE PATIENT RESTING IN BED, EASILY AROUSE. NO SIGNS OF ACUTE DISTRESS NOTED. REMAINS STABLE ON ROOM AIR, BREATHING EVEN AND UNLABORED. NO C/O PAIN AT THIS TIME. DENIES ANY NAUSEA. IV ACCESS ON LEFT FORE ARM #20G, INTACT AND PATENT WITH NS @ 75 ML/HR RUNNING. SAFETY MEASURE IN PLACE, BED IN LOW AND LOCKED POSITION, SIDE RAILS UP X2, CALLLIGHT PLACED WITHIN EASY REACH. WILL ENDORSE TO NEXT SHIFT FOR CONTINUITY OF CARE.
--- NOTE | 2022-11-29 19:43 | NUR ---
RN Opening Notes Received pt in bed, asleep, awakens to verbal stimuli. AOx4, able to make needs known. On RA and tolerating well. No SOB noted. No s/sx of respiratory distress noted. IV access in LFA #20G running NS @ 75 ml/hr. Safety precautions in place: bed in lowest, locked position, siderails upx2, and brakes on. Table and call light within reach. All needs met at this time.
[2022-11-29 20:00] VITALS: BP 92/56
[2022-11-30] MEDS: IV NS 0.9% 1,000 ML IV PRN (04:17)
[2022-11-30] MEDS: METOCLOPRAMIDE HCL 10 MG/2 ML VIAL IV SCH ×2 (04:17→12:54)
[2022-11-30] MEDS: LORAZEPAM INJ 2 MG/ML VIAL IV PRN ×2 (04:31→11:32)
--- NOTE | 2022-11-30 04:31 | NUR ---
RN Notes Administered ativan per pt request for anxiety. VS WNL.
--- NOTE | 2022-11-30 06:04 | NUR ---
RN Notes Patient refusing to have her bed in lowest position after blood was drawn because "I cannot sleep comfortably. My legs hurt when the bed is lowered." Educated patient on risks and still refused to have her bed lowered.
--- NOTE | 2022-11-30 06:54 | NUR ---
RN Closing Notes Pt in bed, asleep, awakens to verbal stimuli. AOx4, able to make needs known. On RA and tolerating well. No SOB noted. No s/sx of respiratory distress noted. IV access in LFA #20G running NS @ 75 ml/hr. All orders carried out. All needs met. Pt kept clean and dry. Safety precautions in place: bed in lowest, locked position, siderails upx2, and brakes on. Table and call light within reach.Will endorse to oncoming shift for OTILIA.
[2022-11-30 07:05] LABS: BASOPHILS % (AUTO) 0.3 % (0.0-2.0); EOSINOPHILS % (AUTO) 1.1 % (0.0-6.0); HEMATOCRIT 36 % (33-45); HEMOGLOBIN 11.6 g/dL (11.5-14.8); LYMPHOCYTES # (AUTO) 1.9 K/uL (0.8-4.8); LYMPHOCYTES % (AUTO) 30.5 % (20.0-44.0); MEAN CORPUSCULAR HGB CONC 32 g/dl (31.0-36.0); MEAN CORPUSCULAR VOLUME 86 fL (82-100); MONOCYTES # (AUTO) 0.4 K/uL (0.1-1.30); MONOCYTES % (AUTO) 6.7 % (2.0-12.0); NEUTROPHILS # (AUTO) 3.8 K/uL (1.8-8.9); NEUTROPHILS % (AUTO) 61.4 % (43.0-81.0); PLATELET COUNT (AUTO) 115 K/uL (150-450); RED BLOOD CELL COUNT(AUTO) 4.22 MIL/uL (4.0-5.2); WHITE BLOOD COUNT (AUTO) 6.2 K/uL (4.3-11.0)
[2022-11-30 07:26] LABS: CREATININE 0.6 mg/dL (0.6-1.3); MAGNESIUM 1.8 mg/dL (1.8-2.4); PHOSPHORUS 3.8 mg/dL (2.5-4.9); POTASSIUM 3.5 mmol/L (3.5-5.1)
--- NOTE | 2022-11-30 07:42 | NUR ---
RN Opening Note Patient AOx4 able to express own concerns. Sleeping, easily aroused. Patient states no complaints, no signs of distress or discomfort. All safety precautions taken, call light and table within reach and bed at lowest position.
[2022-11-30 08:00] VITALS: BP 117/67
[2022-11-30] MEDS: GABAPENTIN 100 MG CAPSULE PO SCH ×2 (08:28→12:54)
[2022-11-30] MEDS: PANTOPRAZOLE 40 MG VIAL IV SCH (08:29)
[2022-11-30] MEDS: ENSURE CLEAR 237 ML LIQUID (MIX BERRY) PO SCH ×2 (08:29→11:33)
--- NOTE | 2022-11-30 16:34 | NUR ---
proposal coordinator Note PAtient AOx4 able to express her concerns. Patient states she is ready for discharge. Removed IV and identification band. No signs of infiltration, no sign of distress. All safety precautions taken, patient wheeled to main entrance where she will wait for ride home. States she would like to wait downstairs since her ride has picked her up in the past and she was not ready. Patient educated on importance of following up with a primary care provider. Patient educated on importance of calling 911 or going to nearest ER in case of an emergency.
[2022-12-01] MEDS ORDERED: PANTOPRAZOLE 40 MG/PACK PACK PO SCH (09:00)
== END 2022-11-30 16:30 | disposition home or self-care (01) | DRG 395 ==
LOC: ER 22:08 → MED 11-29 01:31
PROVIDERS: ADMIT Internal Medicine; ATTEND Internal Medicine
DX: R11.15 Cyclical vomiting syndrome unrelated to migraine (principal); E87.6 Hypokalemia; Z20.822 Contact with and (suspected) exposure to COVID-19; Z88.0 Allergy status to penicillin; N80.9 Endometriosis, unspecified; N94.6 Dysmenorrhea, unspecified; D25.9 Leiomyoma of uterus, unspecified; F41.9 Anxiety disorder, unspecified; F12.90 Cannabis use, unspecified, uncomplicated
CPT/HCPCS: 36415; 80048-TC; 80053-TC; 80076-TC; 81001; 83690-TC; 83735-TC; 84100-TC; 84703-TC; 85025-TC; 87081-TC; C9113; C9803; G0378; J2060; J2270; J2405; J2765; J7030

== ENCOUNTER 2023-01-26 19:58 | Emergency (ER) | payer BC, OTHER ==
[~2023-01-26] VITALS: Ht 170.2 cm; Wt 49.9 kg
[2023-01-26] MEDS ORDERED: ONDANSETRON HCL/PF 4 MG/2 ML VIAL ONE (20:25)
[2023-01-26] MEDS ORDERED: IV NS 0.9% 1,000 ML BAG IV ONE (20:30)
[2023-01-26] MEDS ORDERED: ONDANSETRON HCL/PF 4 MG/2 ML VIAL IVP ONE (20:30)
[2023-01-26] MEDS ORDERED: MORPHINE SULFATE INJ 2 MG/ML DISP.SYRIN ONE ×2 (20:59→23:02)
[2023-01-26] MEDS ORDERED: MORPHINE SULFATE INJ 2 MG/ML DISP.SYRIN IV ONE ×2 (21:00→23:00)
[2023-01-26 21:35] LABS: BASOPHILS # (AUTO) 0.1 K/uL (0.0-0.2); BASOPHILS % (AUTO) 0.7 % (0.0-2.0); EOSINOPHILS % (AUTO) 1.8 % (0.0-6.0); HEMATOCRIT 46 % (33-45); HEMOGLOBIN 14.6 g/dL (11.5-14.8); LYMPHOCYTES # (AUTO) 1.2 K/uL (0.8-4.8); LYMPHOCYTES % (AUTO) 14.7 % (20.0-44.0); MEAN CORPUSCULAR HGB CONC 32 g/dl (31.0-36.0); MEAN CORPUSCULAR VOLUME 85 fL (82-100); MONOCYTES # (AUTO) 0.5 K/uL (0.1-1.30); MONOCYTES % (AUTO) 6.3 % (2.0-12.0); NEUTROPHILS # (AUTO) 6.3 K/uL (1.8-8.9); NEUTROPHILS % (AUTO) 76.5 % (43.0-81.0); PLATELET COUNT (AUTO) 192 K/uL (150-450); RED BLOOD CELL COUNT(AUTO) 5.38 MIL/uL (4.0-5.2); WHITE BLOOD COUNT (AUTO) 8.3 K/uL (4.3-11.0)
[2023-01-26 21:44] LABS: CALCIUM, SERUM 9.4 mg/dL (8.5-10.1); CREATININE 0.7 mg/dL (0.6-1.3); POTASSIUM 3.6 mmol/L (3.5-5.1)
[2023-01-26 21:50] LABS: ALBUMIN 4.3 g/dL (3.4-5.0); BILIRUBIN,DIRECT 0.2 mg/dL (0.0-0.2); BILIRUBIN,TOTAL 0.9 mg/dL (0.2-1.0); TOTAL PROTEIN, SERUM 7.9 g/dL (6.4-8.2)
[2023-01-26] MEDS ORDERED: METOCLOPRAMIDE HCL 10 MG/2 ML VIAL ONE (22:59)
[2023-01-26] MEDS ORDERED: IV NS 0.9% 1,000 ML IV ONE (23:00)
[2023-01-26] MEDS ORDERED: METO-295 PO (23:00)
[2023-01-26] MEDS ORDERED: PROM25SU10 RC (23:00)
[2023-01-26] MEDS ORDERED: METOCLOPRAMIDE HCL 10 MG/2 ML VIAL IV ONE (23:00)
[2023-01-27] MEDS ORDERED: MORPHINE SULFATE INJ 2 MG/ML DISP.SYRIN IV ONE (02:30)
[2023-01-27] MEDS ORDERED: ONDANSETRON HCL/PF - ER 4 MG/2 ML VIAL IV ONE (02:30)
[2023-01-27] MEDS ORDERED: ONDANSETRON HCL/PF 4 MG/2 ML VIAL ONE (02:34)
[2023-01-27] MEDS ORDERED: MORPHINE SULFATE INJ 2 MG/ML DISP.SYRIN ONE (02:35)
[2023-01-27 03:37] VITALS: BP 118/77
--- NOTE | 2023-01-27 03:37 | NUR ---
Patient discharged to home in stable condition. Written and verbal after care instructions given. Patient verbalizes understanding of instruction.IV removed. Catheter intact and site benign. Pressure and 4x4 applied to site. No bleeding noted.
== END 2023-01-27 03:37 | disposition home or self-care (01) ==
LOC: ER 19:59
DX: R10.84 Generalized abdominal pain (principal); R11.2 Nausea with vomiting, unspecified; Z88.0 Allergy status to penicillin; Z60.2 Problems related to living alone
CPT/HCPCS: 99284; 96374; 96361; 96375; 96376 ×2; 85025; 80048; 83690; 80076; 36415; 84702; J2765; J2405 ×2; J7030 ×2; J2270 ×3

== ENCOUNTER 2023-02-06 04:31 | Emergency (ER) | payer BC, OTHER ==
[~2023-02-06] VITALS: Ht 165.1 cm; Wt 49.9 kg
[~2023-02-06 04:31] MED LIST changes: -HYDR-4303 PO; +METO-295 PO; -ONDA4TAB5 PO; +PROM25SU10 RC
--- NOTE | 2023-02-06 05:18 | NUR ---
[id number] FROM HOME C/O ABD PAIN, "DIFFICULTY BREATHING", N/V X1 DAY. PT PLACED COMFORTABLY IN BED, VITALS CHECKED.
--- NOTE | 2023-02-06 05:20 | NUR ---
PROVIDE PT WITH URINE CUP; NOT ABLE TO URINATE AT THIS TIME. WILL F/U
--- NOTE | 2023-02-06 06:05 | NUR ---
PT C/O DIFFICULTY BREATHING, STATES SHE NEEDS OXYGEN AND IV FLUIDS. O2SAT 100% ON RA. HR 85, WJ=442/72.
[2023-02-06] MEDS ORDERED: ONDANSETRON HCL/PF 4 MG/2 ML VIAL IVP ONE (06:30)
[2023-02-06] MEDS ORDERED: IV NS 0.9% 1,000 ML BAG IV ONE ×2 (06:30→09:00)
[2023-02-06] MEDS ORDERED: MORPHINE SULFATE INJ 2 MG/ML DISP.SYRIN IV ONE ×2 (06:30→09:30)
--- NOTE | 2023-02-06 06:30 | NUR ---
18GA TO RAC ESTABLISHED
[2023-02-06] MEDS ORDERED: MORPHINE SULFATE INJ 4 MG/ML DISP.SYRIN ONE ×2 (06:35→09:35)
[2023-02-06] MEDS ORDERED: ONDANSETRON HCL/PF 4 MG/2 ML VIAL ONE (06:35)
--- NOTE | 2023-02-06 06:35 | NUR ---
BLOOD WORK COMPLETED AND SENT TO LAB
--- NOTE | 2023-02-06 06:53 | NUR ---
PAIN MED, ANTI-EMESIS, AND 1L IV GIVEN VIA 18GA RAC
[2023-02-06 07:18] LABS: BASOPHILS % (AUTO) 0.2 % (0.0-2.0); HEMATOCRIT 42 % (33-45); HEMOGLOBIN 13.5 g/dL (11.5-14.8); LYMPHOCYTES # (AUTO) 0.9 K/uL (0.8-4.8); LYMPHOCYTES % (AUTO) 3.9 % (20.0-44.0); MEAN CORPUSCULAR HGB CONC 32 g/dl (31.0-36.0); MEAN CORPUSCULAR VOLUME 85 fL (82-100); MONOCYTES % (AUTO) 4.5 % (2.0-12.0); NEUTROPHILS % (AUTO) 91.4 % (43.0-81.0); PLATELET COUNT (AUTO) 221 K/uL (150-450); RED BLOOD CELL COUNT(AUTO) 4.99 MIL/uL (4.0-5.2); WHITE BLOOD COUNT (AUTO) 21.9 K/uL (4.3-11.0)
[2023-02-06 07:19] LABS: CALCIUM, SERUM 9.9 mg/dL (8.5-10.1); POTASSIUM 4.3 mmol/L (3.5-5.1)
[2023-02-06 07:26] LABS: ALBUMIN 4.2 g/dL (3.4-5.0); BILIRUBIN,DIRECT 0.2 mg/dL (0.0-0.2); BILIRUBIN,TOTAL 0.6 mg/dL (0.2-1.0); TOTAL PROTEIN, SERUM 7.6 g/dL (6.4-8.2)
--- NOTE | 2023-02-06 08:56 | NUR ---
URINE SAMPLE OBTAINED
[2023-02-06] MEDS ORDERED: METOCLOPRAMIDE HCL 10 MG/2 ML VIAL ONE (08:58)
[2023-02-06] MEDS ORDERED: METOCLOPRAMIDE HCL 10 MG/2 ML VIAL IV ONE (09:00)
[2023-02-06 10:16] LABS: BILIRUBIN,URINE NEGATIVE (NEGATIVE); COLOR,URINE YELLOW (YELLOW); LEUKOCYTE ESTERASE ,URINE NEGATIVE (NEGATIVE); NITRITE, URINE NEGATIVE (NEGATIVE); PH,URINE 6.5 (5.0-8.0); PROTEIN,URINE TRACE mg/dl (NEGATIVE); UGLUCOSE NEGATIVE (NEGATIVE); UROBILINOGEN,URINE 0.2 EU/dL (0.2)
[2023-02-06 10:22] LABS: BACTERIA,URINE Rare /HPF (None Seen); CALCIUM OXALATE CRYSTALS,UR Few /HPF (None Seen); RBC,URINE 0-2 /HPF (0-2); SQUAMOUS EPITHELIAL CELL,UR Few /HPF (None Seen); URINE AMORPHOUS PHOSPHATES Moderate /HPF (None Seen); WBC,URINE 0-2 /HPF (0-3)
[2023-02-06] MEDS ORDERED: METO-295 PO (12:04)
[2023-02-06] MEDS ORDERED: HYDR-3980 PO (12:04)
[2023-02-06 12:22] VITALS: BP 112/61
--- NOTE | 2023-02-06 12:22 | NUR ---
Patient discharged to home in stable condition. Written and verbal after care instructions given. Patient verbalizes understanding of instruction.
--- NOTE | 2023-02-06 12:22 | NUR ---
IV removed. Catheter intact and site benign. Pressure and 4x4 applied to site. No bleeding noted.
== END 2023-02-06 12:23 | disposition home or self-care (01) ==
LOC: ER 04:42
DX: D72.829 Elevated white blood cell count, unspecified (principal); R10.84 Generalized abdominal pain; R11.2 Nausea with vomiting, unspecified; Z79.899 Other long term (current) drug therapy; Z60.2 Problems related to living alone; Z88.0 Allergy status to penicillin
CPT/HCPCS: 99284; 96374; 96361; 96375; 96376; 85025; 80048; 83690; 80076; 84703; 81001; 36415; J2270 ×2; J2765; J2405; J7030; A4223

== ENCOUNTER 2023-09-15 01:22 | Emergency (ER) | payer BC, OTHER ==
[~2023-09-15] VITALS: Ht 170.2 cm; Wt 49.9 kg
[~2023-09-15 01:22] MED LIST changes: +HYDR-3980 PO
[2023-09-15] MEDS ORDERED: ONDANSETRON HCL/PF 4 MG/2 ML VIAL ONE (01:47)
[2023-09-15] MEDS ORDERED: FAMOTIDINE/PF INJ 20 MG/2 ML VIAL IV ONE ×2 (01:47→02:00)
[2023-09-15] MEDS ORDERED: ONDANSETRON HCL/PF 4 MG/2 ML VIAL IVP ONE (02:00)
[2023-09-15] MEDS ORDERED: IV NS 0.9% 1,000 ML BAG IV ONE (02:00)
[2023-09-15 02:11] LABS: BASOPHILS % (AUTO) 0.3 % (0.0-2.0); HEMATOCRIT 34 % (33-45); HEMOGLOBIN 10.8 g/dL (11.5-14.8); LYMPHOCYTES # (AUTO) 0.7 K/uL (0.8-4.8); LYMPHOCYTES % (AUTO) 7.7 % (20.0-44.0); MEAN CORPUSCULAR HEMOGLOBIN 27 PG (26.0-33.0); MEAN CORPUSCULAR HGB CONC 32 g/dl (31.0-36.0); MEAN CORPUSCULAR VOLUME 84 fL (82-100); MONOCYTES # (AUTO) 0.3 K/uL (0.1-1.30); MONOCYTES % (AUTO) 3.3 % (2.0-12.0); NEUTROPHILS # (AUTO) 8.1 K/uL (1.8-8.9); NEUTROPHILS % (AUTO) 88.7 % (43.0-81.0); PLATELET COUNT (AUTO) 114 K/uL (150-450); RED BLOOD CELL COUNT(AUTO) 4.06 MIL/uL (4.0-5.2); RED CELL DISTRIBUTION WIDTH 13.8 % (11.5-15.0); WHITE BLOOD COUNT (AUTO) 9.1 K/uL (4.3-11.0)
[2023-09-15 02:20] LABS: CALCIUM, SERUM 8.2 mg/dL (8.5-10.1); CREATININE 0.7 mg/dL (0.6-1.3)
[2023-09-15 02:26] LABS: ALBUMIN 3.2 g/dL (3.4-5.0); BILIRUBIN,DIRECT 0.1 mg/dL (0.0-0.2); BILIRUBIN,TOTAL 0.5 mg/dL (0.2-1.0); TOTAL PROTEIN, SERUM 5.7 g/dL (6.4-8.2)
[2023-09-15] MEDS ORDERED: KETOROLAC TROMETHAMINE INJ 30 MG/ML VIAL ONE (02:28)
[2023-09-15] MEDS ORDERED: KETOROLAC TROMETHAMINE INJ 30 MG/ML VIAL IV ONE (02:30)
[2023-09-15 02:54] LABS: APPEARANCE,URINE CLEAR (CLEAR); BILIRUBIN,URINE NEGATIVE (NEGATIVE); BLOOD, URINE 1+ Ery/uL (NEGATIVE); COLOR,URINE YELLOW (YELLOW); KETONES,URINE NEGATIVE (NEGATIVE); LEUKOCYTE ESTERASE ,URINE NEGATIVE (NEGATIVE); NITRITE, URINE NEGATIVE (NEGATIVE); PH,URINE 5.5 (5.0-8.0); PROTEIN,URINE NEGATIVE (NEGATIVE); UGLUCOSE NEGATIVE (NEGATIVE); UROBILINOGEN,URINE 0.2 EU/dL (0.2)
[2023-09-15 02:55] LABS: ADD URINE CULTURE NO; BACTERIA,URINE Rare /HPF (None Seen); PREGNANCY TEST URINE QUAL NEGATIVE (NEGATIVE); SQUAMOUS EPITHELIAL CELL,UR Rare /HPF (None Seen); WBC,URINE 0-2 /HPF (0-3)
[2023-09-15] MEDS ORDERED: KETOROLAC TROMETHAMINE 15 MG/ML VIAL ONE (03:29)
[2023-09-15] MEDS ORDERED: KETOROLAC TROMETHAMINE 15 MG/ML VIAL IV ONE (03:30)
[2023-09-15] MEDS ORDERED: ONDA4TAB5 PO (03:45)
[2023-09-15 04:45] VITALS: BP 108/61; TEMP 98; O2SAT 99
== END 2023-09-15 04:47 | disposition home or self-care (01) ==
LOC: ER 01:25
DX: R11.2 Nausea with vomiting, unspecified (principal); R10.2 Pelvic and perineal pain; Z88.0 Allergy status to penicillin; Z60.2 Problems related to living alone
CPT/HCPCS: 99284; 96374; 96375; 96361; 93005; 96376; 85025; 80048; 87086; 83690; 80076; 84703; 81001; 36415; 84702; J3490; J1885 ×2; J2405; J7030

== ENCOUNTER 2023-11-19 16:13 | Emergency (ER) | payer BC, OTHER ==
[~2023-11-19] VITALS: Ht 170.2 cm; Wt 49.9 kg
[~2023-11-19 16:13] MED LIST changes: +ONDA4TAB5 PO
[2023-11-19] MEDS ORDERED: KETOROLAC TROMETHAMINE 15 MG/ML VIAL ONE (17:04)
[2023-11-19] MEDS ORDERED: PANTOPRAZOLE 40 MG VIAL ONE (17:04)
[2023-11-19] MEDS ORDERED: ONDANSETRON HCL/PF 4 MG/2 ML VIAL ONE (17:04)
[2023-11-19] MEDS: IV NS 0.9% 1,000 ML BAG IV ONE (17:12)
[2023-11-19] MEDS: PANTOPRAZOLE 40 MG VIAL IV ONE (17:22)
[2023-11-19 17:24] LABS: BASOPHILS % (AUTO) 0.3 % (0.0-2.0); HEMATOCRIT 43 % (33-45); HEMOGLOBIN 13.7 g/dL (11.5-14.8); LYMPHOCYTES # (AUTO) 1.1 K/uL (0.8-4.8); LYMPHOCYTES % (AUTO) 7.3 % (20.0-44.0); MEAN CORPUSCULAR HEMOGLOBIN 27 PG (26.0-33.0); MEAN CORPUSCULAR HGB CONC 32 g/dl (31.0-36.0); MEAN CORPUSCULAR VOLUME 84 fL (82-100); MONOCYTES # (AUTO) 0.4 K/uL (0.1-1.30); MONOCYTES % (AUTO) 2.8 % (2.0-12.0); NEUTROPHILS # (AUTO) 13.7 K/uL (1.8-8.9); NEUTROPHILS % (AUTO) 89.6 % (43.0-81.0); PLATELET COUNT (AUTO) 222 K/uL (150-450); RED BLOOD CELL COUNT(AUTO) 5.09 MIL/uL (4.0-5.2); RED CELL DISTRIBUTION WIDTH 15.3 % (11.5-15.0); WHITE BLOOD COUNT (AUTO) 15.2 K/uL (4.3-11.0)
[2023-11-19] MEDS: KETOROLAC TROMETHAMINE 15 MG/ML VIAL IV ONE (17:24)
[2023-11-19] MEDS: ONDANSETRON HCL/PF 4 MG/2 ML VIAL IVP ONE (17:24)
[2023-11-19 17:43] LABS: CALCIUM, SERUM 9.7 mg/dL (8.5-10.1); CREATININE 0.7 mg/dL (0.6-1.3); POTASSIUM 4.7 mmol/L (3.5-5.1)
[2023-11-19 17:49] LABS: ALBUMIN 4.2 g/dL (3.4-5.0); BILIRUBIN,DIRECT 0.1 mg/dL (0.0-0.2); BILIRUBIN,TOTAL 0.7 mg/dL (0.2-1.0); TOTAL PROTEIN, SERUM 8.2 g/dL (6.4-8.2)
[2023-11-19] MEDS ORDERED: MORPHINE SULFATE INJ 4 MG/ML DISP.SYRIN ONE (18:07)
[2023-11-19] MEDS ORDERED: METOCLOPRAMIDE HCL 10 MG/2 ML VIAL ONE ×2 (18:07→19:49)
[2023-11-19] MEDS: MORPHINE SULFATE INJ 2 MG/ML DISP.SYRIN IV ONE (18:16)
[2023-11-19] MEDS: METOCLOPRAMIDE HCL 10 MG/2 ML VIAL IV ONE ×2 (18:17→20:04)
[2023-11-19] MEDS ORDERED: diphenhydrAMINE HCL 50 MG/ML VIAL ONE (20:03)
[2023-11-19] MEDS: IV NS 0.9% 500 ML BAG IV ONE (20:04)
[2023-11-19] MEDS: diphenhydrAMINE HCL 50 MG/ML VIAL IV ONE (20:04)
[2023-11-19 20:08] LABS: APPEARANCE,URINE SLIGHTLY CLOUDY (CLEAR); BILIRUBIN,URINE NEGATIVE (NEGATIVE); BLOOD, URINE TRACE-INTA Ery/uL (NEGATIVE); COLOR,URINE YELLOW (YELLOW); KETONES,URINE 2+ mg/dL (NEGATIVE); LEUKOCYTE ESTERASE ,URINE NEGATIVE (NEGATIVE); NITRITE, URINE NEGATIVE (NEGATIVE); PH,URINE 7.5 (5.0-8.0); PROTEIN,URINE NEGATIVE (NEGATIVE); UGLUCOSE NEGATIVE (NEGATIVE); UROBILINOGEN,URINE 0.2 EU/dL (0.2)
[2023-11-19 20:13] LABS: PREGNANCY TEST URINE QUAL NEGATIVE (NEGATIVE)
[2023-11-19 20:32] LABS: ADD URINE CULTURE YES; BACTERIA,URINE 2+ /HPF (None Seen); RBC,URINE 0-2 /HPF (0-2); SQUAMOUS EPITHELIAL CELL,UR Few /HPF (None Seen); WBC,URINE 0-2 /HPF (0-3)
[2023-11-19 20:33] LABS: URINE AMORPHOUS PHOSPHATES Moderate /HPF (None Seen)
[2023-11-19] MEDS ORDERED: ONDA4TAB5 PO (21:27)
[2023-11-19 21:43] VITALS: BP 118/70; TEMP 98; O2SAT 98
== END 2023-11-19 22:23 | disposition home or self-care (01) ==
LOC: ER 16:31
DX: D72.829 Elevated white blood cell count, unspecified (principal); R10.84 Generalized abdominal pain; R10.2 Pelvic and perineal pain; R11.2 Nausea with vomiting, unspecified; Z79.899 Other long term (current) drug therapy; Z60.2 Problems related to living alone; Z88.0 Allergy status to penicillin
CPT/HCPCS: 99284; 96375; 96374; 96361; 96376; 85025; 80048; 87086; 83690; 80076; 84703; 81001; 36415; J1200; J2270; J2765 ×2; J2405; J7040; C9113; J1885

== ENCOUNTER 2023-12-07 14:53 | Emergency (ER) | payer BC, OTHER ==
[~2023-12-07] VITALS: Ht 170.2 cm; Wt 49.9 kg
[2023-12-07] MEDS: KETOROLAC TROMETHAMINE INJ 30 MG/ML VIAL IV ONE (16:00)
[2023-12-07] MEDS ORDERED: ONDANSETRON HCL/PF 4 MG/2 ML VIAL ONE (16:32)
[2023-12-07] MEDS: ONDANSETRON HCL/PF - ER 4 MG/2 ML VIAL IV ONE (16:37)
[2023-12-07 16:54] LABS: APPEARANCE,URINE SLIGHTLY CLOUDY (CLEAR); BILIRUBIN,URINE NEGATIVE (NEGATIVE); BLOOD, URINE NEGATIVE Ery/uL (NEGATIVE); COLOR,URINE YELLOW (YELLOW); KETONES,URINE 2+ mg/dL (NEGATIVE); LEUKOCYTE ESTERASE ,URINE TRACE (NEGATIVE); NITRITE, URINE NEGATIVE (NEGATIVE); PH,URINE 8.5 (5.0-8.0); PREGNANCY TEST URINE QUAL NEGATIVE (NEGATIVE); PROTEIN,URINE TRACE mg/dl (NEGATIVE); UGLUCOSE NEGATIVE (NEGATIVE); UROBILINOGEN,URINE 0.2 EU/dL (0.2)
[2023-12-07] MEDS ORDERED: KETOROLAC TROMETHAMINE INJ 30 MG/ML VIAL ONE (17:02)
[2023-12-07 17:09] LABS: ADD URINE CULTURE NO; BACTERIA,URINE RARE /HPF (None Seen); RBC,URINE 0-2 /HPF (0-2); URINE AMORPHOUS PHOSPHATES Few /HPF (None Seen)
[2023-12-07 17:13] LABS: AMPHETAMINE, URINE NEGATIVE (NEGATIVE); BARBITURATE, URINE NEGATIVE (NEGATIVE); BENZODIAZEPINE, URINE NEGATIVE (NEGATIVE); COCCAINE, URINE NEGATIVE (NEGATIVE); OPIATE, URINE NEGATIVE (NEGATIVE); PHENCYCLIDINE SCREEN,URINE NEGATIVE (NEGATIVE)
[2023-12-07 17:14] LABS: CANNABINOID, URINE POSITIVE (NEGATIVE)
[2023-12-07] MEDS: IV NS 0.9% 1,000 ML IV ONE (17:59)
[2023-12-07] MEDS ORDERED: HYDROMORPHONE 1 MG/1 ML DISP.SYRIN ONE (17:59)
[2023-12-07] MEDS: HYDROMORPHONE 1 MG/1 ML DISP.SYRIN IV ONE (18:05)
[2023-12-07 19:04] LABS: BASOPHILS % (AUTO) 0.3 % (0.0-2.0); HEMATOCRIT 40 % (33-45); HEMOGLOBIN 13.1 g/dL (11.5-14.8); LYMPHOCYTES # (AUTO) 0.6 K/uL (0.8-4.8); LYMPHOCYTES % (AUTO) 5.5 % (20.0-44.0); MEAN CORPUSCULAR HEMOGLOBIN 28 PG (26.0-33.0); MEAN CORPUSCULAR HGB CONC 33 g/dl (31.0-36.0); MEAN CORPUSCULAR VOLUME 84 fL (82-100); MONOCYTES # (AUTO) 0.2 K/uL (0.1-1.30); NEUTROPHILS # (AUTO) 10.2 K/uL (1.8-8.9); NEUTROPHILS % (AUTO) 92.2 % (43.0-81.0); PLATELET COUNT (AUTO) 190 K/uL (150-450); RED BLOOD CELL COUNT(AUTO) 4.75 MIL/uL (4.0-5.2); RED CELL DISTRIBUTION WIDTH 14.8 % (11.5-15.0)
[2023-12-07 19:37] LABS: CALCIUM, SERUM 9.6 mg/dL (8.5-10.1); CARBON DIOXIDE 27 mmol/L (21-32); CHLORIDE 101 mmol/L (98-107); CREATININE 0.8 mg/dL (0.6-1.3); GLUCOSE 136 mg/dL (74-106); POTASSIUM 3.7 mmol/L (3.5-5.1); SODIUM SERUM 138 mmol/L (136-145); UREA NITROGEN, BLOOD 8 mg/dL (7-18)
[2023-12-07 19:42] LABS: LACTIC ACID 2.5 mmol/L (0.4-2.0)
[2023-12-07 19:44] LABS: ALANINE AMINOTRANSFERASE 18 U/L (12-78); ALBUMIN 4.1 g/dL (3.4-5.0); ALKALINE PHOSPHATASE 80 U/L (46-116); ASPARTATE AMINOTRANSFERASE 19 U/L (15-37); BILIRUBIN,TOTAL 0.6 mg/dL (0.2-1.0); LIPASE 31 U/L (16-77); TOTAL PROTEIN, SERUM 7.4 g/dL (6.4-8.2)
[2023-12-07] MEDS ORDERED: LEVOFLOXACIN 500 MG /D5W 100ML 100 ML IV ONE (19:59)
[2023-12-07] MEDS: LEVOFLOXACIN 500 MG /D5W 100ML 500 MG/100 ML PIGGYBACK IV ONE (20:00)
[2023-12-07 20:36] LABS: PLATELET ESTIMATE ADEQU
[2023-12-07] MEDS ORDERED: NITR100C6 PO (22:18)
[2023-12-07 22:27] LABS: BILIRUBIN,DIRECT 0.1 mg/dL (0.0-0.2)
[2023-12-07 22:30] LABS: LACTIC ACID REFLEX 1.8 mmol/L (0.4-1.9)
[2023-12-07] MEDS ORDERED: MORPHINE SULFATE INJ 2 MG/ML DISP.SYRIN ONE (22:40)
[2023-12-07] MEDS: MORPHINE SULFATE INJ 2 MG/ML DISP.SYRIN IV ONE (22:41)
[2023-12-07 23:25] VITALS: BP 118/72; TEMP 98; O2SAT 95
== END 2023-12-07 23:26 | disposition home or self-care (01) ==
LOC: ER 14:58
DX: R10.9 Unspecified abdominal pain (principal); R11.2 Nausea with vomiting, unspecified; Z88.0 Allergy status to penicillin; Z60.2 Problems related to living alone
CPT/HCPCS: 99285; 74176; 96365; 96375; 96361; 82248; 85025; 83605 ×2; 83690; 84703; 36415; 80053; 80307; 81001; J1885; J2405; J7030; J1956; J2270; J1170

== ENCOUNTER 2024-01-01 19:38 | Emergency (ER) | payer BC, OTHER ==
[~2024-01-01] VITALS: Ht 162.6 cm; Wt 49.9 kg
[~2024-01-01 19:38] MED LIST changes: +NITR100C6 PO
[2024-01-01 19:41] VITALS: TEMP 97.5
[2024-01-01] MEDS: IV NS 0.9% 1,000 ML BAG IV ONE (20:13)
[2024-01-01] MEDS ORDERED: MORPHINE SULFATE INJ 2 MG/ML DISP.SYRIN ONE ×2 (20:15→22:04)
[2024-01-01] MEDS: KETOROLAC TROMETHAMINE 15 MG/ML VIAL IV ONE ×2 (20:15→22:05)
[2024-01-01] MEDS ORDERED: KETOROLAC TROMETHAMINE 15 MG/ML VIAL ONE ×2 (20:15→22:04)
[2024-01-01] MEDS ORDERED: HALOPERIDOL LACTATE INJ 5 MG/ML VIAL ONE (20:15)
[2024-01-01 20:16] LABS: BASOPHILS # (AUTO) 0.2 K/uL (0.0-0.2); BASOPHILS % (AUTO) 1.1 % (0.0-2.0); EOSINOPHILS % (AUTO) 0.2 % (0.0-6.0); HEMATOCRIT 38 % (33-45); LYMPHOCYTES # (AUTO) 1.9 K/uL (0.8-4.8); LYMPHOCYTES % (AUTO) 10.9 % (20.0-44.0); MEAN CORPUSCULAR HEMOGLOBIN 27 PG (26.0-33.0); MEAN CORPUSCULAR HGB CONC 32 g/dl (31.0-36.0); MEAN CORPUSCULAR VOLUME 84 fL (82-100); MONOCYTES # (AUTO) 0.7 K/uL (0.1-1.30); MONOCYTES % (AUTO) 3.9 % (2.0-12.0); NEUTROPHILS # (AUTO) 14.7 K/uL (1.8-8.9); NEUTROPHILS % (AUTO) 83.9 % (43.0-81.0); PLATELET COUNT (AUTO) 191 K/uL (150-450); RED BLOOD CELL COUNT(AUTO) 4.53 MIL/uL (4.0-5.2); RED CELL DISTRIBUTION WIDTH 14.5 % (11.5-15.0); WHITE BLOOD COUNT (AUTO) 17.5 K/uL (4.3-11.0)
[2024-01-01] MEDS: MORPHINE SULFATE INJ 2 MG/ML DISP.SYRIN IV ONE ×2 (20:17→22:07)
[2024-01-01] MEDS: HALOPERIDOL LACTATE INJ 5 MG/ML VIAL IV ONE (20:20)
[2024-01-01 20:24] LABS: CALCIUM, SERUM 8.8 mg/dL (8.5-10.1); CREATININE 0.6 mg/dL (0.6-1.3); POTASSIUM 4.4 mmol/L (3.5-5.1)
[2024-01-01 20:29] LABS: ALBUMIN 3.7 g/dL (3.4-5.0); BILIRUBIN,DIRECT 0.1 mg/dL (0.0-0.2); BILIRUBIN,TOTAL 0.5 mg/dL (0.2-1.0); TOTAL PROTEIN, SERUM 7.1 g/dL (6.4-8.2)
[2024-01-01 21:55] LABS: APPEARANCE,URINE Clear (CLEAR); BILIRUBIN,URINE Negative (NEGATIVE); BLOOD, URINE Small Ery/uL (NEGATIVE); COLOR,URINE YELLOW (YELLOW); KETONES,URINE 40 mg/dL (NEGATIVE); LEUKOCYTE ESTERASE ,URINE Negative (NEGATIVE); NITRITE, URINE Negative (NEGATIVE); PROTEIN,URINE Negative (NEGATIVE); UGLUCOSE Negative (NEGATIVE); UROBILINOGEN,URINE 0.2 EU/dL (0.2)
[2024-01-01 21:57] LABS: PREGNANCY TEST URINE QUAL NEGATIVE (NEGATIVE)
[2024-01-01] MEDS ORDERED: IOHEXOL-300 100 ML VIAL IV ONE ×2 (22:04→23:23)
[2024-01-01] MEDS ORDERED: IV NS 0.9% 250 ML IV ONE ×2 (22:05→23:23)
[2024-01-01] MEDS ORDERED: CT SWABBABLE VALVE TRANS SET 1 EA INFUS.SET MC ONE ×2 (22:05→23:23)
[2024-01-01 22:13] LABS: ADD URINE CULTURE YES; BACTERIA,URINE 3+ /HPF (None Seen); WBC,URINE 0-2 /HPF (0-3)
[2024-01-02 01:20] VITALS: BP 110/62; O2SAT 99
[2024-01-02 02:40] LABS: ANISOCYTOSIS 1+; BAND % (MANUAL) 1 % (0.0-5.0); EOSINOPHILS % (MANUAL) 1 % (0-4); LYMPHOCYTES % (MANUAL) 9 % (16-48); MONOCYTES % (MANUAL) 4 % (0-11.0); NEUTROPHILS % (MANUAL) 85 (42-76); PLATELET ESTIMATE ADEQUATE
== END 2024-01-02 01:20 | disposition home or self-care (01) ==
LOC: ER 19:39
DX: R10.30 Lower abdominal pain, unspecified (principal); R11.2 Nausea with vomiting, unspecified; R10.2 Pelvic and perineal pain; Z79.899 Other long term (current) drug therapy; Z60.2 Problems related to living alone; Z88.0 Allergy status to penicillin
CPT/HCPCS: 99285; 74177; 76705; 96374; 96375; 96361; 96376; 76856; 85025; 80048; 87086; 83690; 80076; 84703; 81001; 36415; 84702; 85007; J1630; J7030; J7050 ×2; J2270 ×2; Q9967 ×2; J1885 ×2

== ENCOUNTER 2024-02-02 18:41 | Emergency (ER) | payer BC, OTHER ==
[~2024-02-02] VITALS: Ht 167.6 cm; Wt 60.8 kg
[2024-02-02] MEDS ORDERED: HALOPERIDOL LACTATE INJ 5 MG/ML VIAL ONE (19:40)
[2024-02-02] MEDS: HALOPERIDOL LACTATE INJ 5 MG/ML VIAL IM ONE (19:40)
[2024-02-02] MEDS ORDERED: HYDROCODONE/APAP 5/325MG TABLET ONE (19:40)
[2024-02-02] MEDS: HYDROCODONE/APAP 5/325MG TABLET PO ONE (19:41)
[2024-02-02 20:09] LABS: BASOPHILS # (AUTO) 0.1 K/uL (0.0-0.2); BASOPHILS % (AUTO) 0.4 % (0.0-2.0); EOSINOPHILS % (AUTO) 0.1 % (0.0-6.0); HEMATOCRIT 40 % (33-45); HEMOGLOBIN 12.6 g/dL (11.5-14.8); LYMPHOCYTES # (AUTO) 1.7 K/uL (0.8-4.8); LYMPHOCYTES % (AUTO) 8.7 % (20.0-44.0); MEAN CORPUSCULAR HEMOGLOBIN 27 PG (26.0-33.0); MEAN CORPUSCULAR HGB CONC 32 g/dl (31.0-36.0); MEAN CORPUSCULAR VOLUME 86 fL (82-100); MONOCYTES # (AUTO) 0.7 K/uL (0.1-1.30); MONOCYTES % (AUTO) 3.7 % (2.0-12.0); NEUTROPHILS # (AUTO) 16.9 K/uL (1.8-8.9); NEUTROPHILS % (AUTO) 87.1 % (43.0-81.0); PLATELET COUNT (AUTO) 197 K/uL (150-450); RED BLOOD CELL COUNT(AUTO) 4.61 MIL/uL (4.0-5.2); RED CELL DISTRIBUTION WIDTH 13.6 % (11.5-15.0); WHITE BLOOD COUNT (AUTO) 19.5 K/uL (4.3-11.0)
[2024-02-02 20:18] LABS: CALCIUM, SERUM 8.7 mg/dL (8.5-10.1); CREATININE 0.7 mg/dL (0.6-1.3); POTASSIUM 3.5 mmol/L (3.5-5.1)
[2024-02-02] MEDS ORDERED: METO-295 PO (20:27)
[2024-02-02 20:44] VITALS: BP 124/78; TEMP 98; O2SAT 100
== END 2024-02-02 20:51 | disposition home or self-care (01) ==
LOC: ER 18:44
DX: G89.29 Other chronic pain (principal); R10.9 Unspecified abdominal pain; R11.10 Vomiting, unspecified; Z88.0 Allergy status to penicillin; Z60.2 Problems related to living alone; Z79.899 Other long term (current) drug therapy
CPT/HCPCS: 36415; 80048-TC; 85025-TC; J1630